=== PATIENT | male | born 1955 | race Caucasian/White ===

== ENCOUNTER 2018-02-18 09:10 | Inpatient (IN) ==
[2018-02-18] MEDS: Sod Chloride 0.9% Inj 1,000 ML IV.CONT SCH (15:00)
--- NOTE | 2018-02-18 15:02 | P.HPIM ---
History of Present Illness Primary Care Physician: No Primary Care Physician Chief Complaint: fall History of Present Illness: 62-year-old male was brought to the ER by his friend for evaluation after a fall. patient is a poor historian and most of the information was obtained from ER record. Patient is not oriented to time or place, has incoherent speech, unable to give any valuable information about his condition. 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 Patient was able to walk with his friend to and from the car, his friend does not know his medical history. Inpatient Certification: I certify that the inpatient services were ordered in accordance with Medicare regulations governing the order. This includes certification that hospital inpatient services are reasonable and necessary and in the case of services not specified as inpatient-only under 42 CFR 419.22(n), that they are appropriately provided as inpatient services in accordance to with the 2-midnight benchmark under 43 CFR 412.3(e) Estimated Total Length of Stay (Days): 2 Plans for Post Hospital Care: Not yet determined Review of Systems unobtainable due to mental condition PMFSH - History History Provided By: Friend - Medical History Medical History: Medical History (Last Reviewed 02/18/18 @ 15:01 by Claudia Adam RN) Arthritis - Surgical History Surgical History: Surgical History (Last Updated 02/18/18 @ 09:36 by Nannette Castro RN) History of hand surgery - Tobacco History Second Hand Smoke Exposure: No Smoking Status: Never smoker - Alcohol History How Often Do You Have a Drink Containing Alcohol: 4 or more times a week - Substance Use History Substance History: No History of Abuse Medications and Allergies Active Medications: Active Medications Sodium Chloride (Ns Inj) 1,000 mls @ 100 mls/hr IV.CONT .Q10H DOUGLAS Allergies Allergy/AdvReac Type Severity Reaction Status Date / Time No Known Allergies Allergy Verified 02/18/18 09:28 Home Medications Medication Instructions Recorded Confirmed Type uuglswdopv-fucgkbkcibtnt-ohus 2 cap PO Q4H PRN 02/18/18 02/18/18 History [Fioricet] hydroxychloroquine 200 mg PO DAILY 02/18/18 02/18/18 History oxycodone-aspirin 1 tab PO Q4-6H PRN 02/18/18 02/18/18 History Exam - Constitutional no acute distress - Routine HEENT Exam Head: Present: facial swelling (periorbital bruises- bilaterally.) - Routine Neck Exam Present: supple - Routine Respiratory Exam Present: CTA bilaterally - Routine Cardiovascular Exam Present: RRR - Routine Abdominal Exam Present: soft - Routine Extremities Exam Comments: no pedal edema. - Routine Neurological Exam Present: alert (but not oriented to time or place.) Caprini VTE Risk Assessment Caprini VTE Risk Assessment: Moderate/High Risk (score >= 2) VTE Pharmacological Exception Reason: High risk for bleeding Caprini Risk Assessment Model: Point Value = 1 Point Value = 2 Point Value = 3 Point Value = 5 Age 41-60 Minor surgery BMI > 25 kg/m2 Swollen legs Varicose veins or History of unexplained or recurrent spontaneous Oral contraceptives or hormone replacement Sepsis (< 1 month) Serious lung disease, including pneumonia (< 1 month) Abnormal pulmonary function Acute myocardial infarction Congestive heart failure (< 1 month) History of inflammatory bowel disease Medical patient at bed rest Age 61-74 Arthroscopic surgery Major open surgery (> 45 min) Laparoscopic surgery (> 45 min) Malignancy Confined to bed (> 72 hours) Immobilizing plaster cast Central venous access Age >= 75 History of VTE Family history of VTE Factor V Leiden Prothrombin 33909H Lupus anticoagulant Anticardiolipin antibodies Elevated serum homocysteine Heparin-induced thrombocytopenia Other congenital or acquired thrombophilia Stroke (< 1 month) Elective arthroplasty Hip, pelvis, or leg fracture Acute spinal cord injury (< 1 month) Prophylaxis Regimen: Total Risk Factor Score Risk Level Prophylaxis Regimen 0-1 Low Early ambulation 2 Moderate Order ONE of the following: *Sequential Compression Device (SCD) *Heparin 5000 units SQ BID 3-4 Higher Order ONE of the following medications: *Heparin 5000 units SQ TID *Enoxaparin/Lovenox 40 mg SQ daily (WT < 150 kg, CrCl > 30 mL/min) *Enoxaparin/Lovenox 30 mg SQ daily (WT < 150 kg, CrCl > 10-29 mL/min) *Enoxaparin/Lovenox 30 mg SQ BID (WT < 150 kg, CrCl > 30 mL/min) AND/OR *Sequential Compression Device (SCD) 5 or more Highest Order ONE of the following medications: *Heparin 5000 units SQ TID (Preferred with Epidurals) *Enoxaparin/Lovenox 40 mg SQ daily (WT < 150 kg, CrCl > 30 mL/min) *Enoxaparin/Lovenox 30 mg SQ daily (WT < 150 kg, CrCl > 10-29 mL/min) *Enoxaparin/Lovenox 30 mg SQ BID (WT < 150 kg, CrCl > 30 mL/min) AND *Sequential Compression Device (SCD) Assessment and Plan - Plan A/P - acute encephalopathy head CT with possible brain lesion and vasogenic edema. will obtain MRI brain and consult neurosurgery. received a dose of Dexamethasone and Keppra in ER. keep NPO for now- continue with IV fluid and neuro-checks. -fall with rib fracture/ possible T4 fracture fall precautions- check CT thoracic spine and continue with pain control- -right tongue swelling- likely due to trauma- will consider ENT evaluation. -pulmonary nodule and nonspecific liver lesions- will consider oncology evaluation-pending MRI brain. -DVT/GI prophylaxis with SCD's and PPI. Discussed Condition With: ER physician, the patient and RN.
[2018-02-18] MEDS ORDERED: Gadobutrol PF 7.5 MMOL/7.5 ML Vial (for RAD) IV.SIG ONE (16:29)
--- NOTE | 2018-02-18 16:44 | MR ---
EXAM DATE: 02/18/2018 4:35 PM EDT AGE/SEX: 62 years / Male INDICATIONS: Altered mental status. Garbled speech. CLINICAL DATA: This is the patient's initial encounter. Patient reports that signs and symptoms have been present for 1 day and indicates a pain score of 0/10. MEDICAL/SURGICAL HISTORY: Arthritis. Asthma. . Hand surgery. COMPARISON: [facility], CT HEAD W/O CONTRAST, 02/18/2018. . TECHNIQUE: Multiplanar, multisequence examination of the brain was performed without and with 7cc ml Gadavist (gadobutrol) contrast as a single exam dose. FINDINGS: Cerebrum: The ventricles are normal for age. There is a irregular enhancing mass lesion in the left posterior parietal lobe measuring approximately 2.6 cm. This is surrounded by vasogenic edema consist ent with neoplastic disease. No other enhancing mass occupying lesions are demonstrated. There appear s to be some subacute hemorrhage associated with this mass. No significant mass effect or midline moses ft is demonstrated.. White Matter: No significant signal abnormalities are seen in the white matter. Posterior Fossa: The cerebellum and brainstem are intact. The 4th ventricle is midline. The cerebel lopontine angle is unremarkable. The cerebellar tonsils are normal in position. Diffusion Imaging: No focal areas of restricted diffusion are seen. No evidence of acute infarction . Extracranial: The visualized portions of the orbits and paranasal sinuses are unremarkable. There is evidence of bilateral chronic mastoiditis. Post Contrast: 2.6 cm enhancing mass lesion in the left posterior parietal lobe surrounded by vasoge lorena edema characteristic for neoplastic disease. CONCLUSION: 1. Single 2.6 cm enhancing mass lesion in the left posterior parietal lobe surrounded by prominent v asogenic edema characteristic for neoplastic disease. Could either be a primary brain tumor versus a metastatic deposit. 2. Bilateral chronic mastoiditis. Electronically signed by: Kelby Carvalho MD 02/18/2018 4:43 PM EDT
[2018-02-18] MEDS: Pantoprazole Inj 40 MG Vial IV.PUSH SCH (18:09)
--- NOTE | 2018-02-18 19:09 | CT ---
EXAM DATE: 02/18/2018 12:50 PM EDT AGE/SEX: 62 years / Male INDICATIONS: T-spine abnormality seen on prior CT Thorax. CLINICAL DATA: This is the patient's initial encounter. Patient reports that signs and symptoms have been present for 1 day and indicates a pain score of 0/10. MEDICAL/SURGICAL HISTORY: None. None. RADIATION DOSE: . CTDI (mGy) ; Reconstructed from previous dataset, no dose COMPARISON: No prior exams available for comparison. TECHNIQUE: Contiguous axial images were acquired using a multirow detector CT scanner without contra st. Multiplanar reconstruction in the sagittal and coronal planes was performed. Using automated exp osure control and adjustment of the mA and/or kV according to patient size, radiation dose was kept a s low as reasonably achievable to obtain optimal diagnostic quality images. DICOM format image data is available electronically for review and comparison. FINDINGS: Vertebrae: Minimal fractures along the superior endplate at T3 and T4. Fracture may extend into the posterior elements at T3 on the left. No retropulsion of posterior fragments. Minimal loss of height of T3 and T4. Fracture along the superior aspect of T4 extends into the posterior elements without si gnificant displacement. No retropulsion of posterior fragments or canal stenosis. Alignment: Normal. No subluxation. T1 - T2: Normal. T2 - T3: The thecal sac has a normal diameter. No evidence of disc bulge or protrusion. T3 - T4: The thecal sac has a normal diameter. No evidence of disc bulge or protrusion. T4 - T5: The thecal sac has a normal diameter. No evidence of disc bulge or protrusion. T5 - T6: The thecal sac has a normal diameter. No evidence of disc bulge or protrusion. T6 - T7: The thecal sac has a normal diameter. No evidence of disc bulge or protrusion. T7 - T8: The thecal sac has a normal diameter. No evidence of disc bulge or protrusion. T8 - T9: The thecal sac has a normal diameter. No evidence of disc bulge or protrusion. T9 - T10: The thecal sac has a normal diameter. No evidence of disc bulge or protrusion. T10 - T11: The thecal sac has a normal diameter. No evidence of disc bulge or protrusion. T11 - T12: The thecal sac has a normal diameter. No evidence of disc bulge or protrusion. T12 - L1: The thecal sac has a normal diameter. No evidence of disc bulge or protrusion. CONCLUSION: 1. Fractures along the superior endplate at T3 and T4 with slight extension into the posterior eleme nts on the left at T3 and bilaterally at T4. No retropulsion of posterior fragments or canal stenosis . Electronically signed by: Luca Osborn MD 02/18/2018 12:55 PM EDT
[2018-02-19] MEDS: Sod Chloride 0.9% Inj 1,000 ML IV.CONT SCH ×2 (03:18→10:26)
--- NOTE | 2018-02-19 10:39 | P.PNIM ---
Subjective Interval history: f/u; brain tumor looks comfortable. denies pain. d/w the RN and no acute issues over night. Physical Exam Vital signs: Vital Signs 02/18/18 15:00 02/18/18 16:00 02/18/18 20:00 Temperature 99.6 F 99.6 F 99.4 F Pulse Rate 102 H 102 H 92 H Respiratory Rate 24 25 H 23 Blood Pressure 175/84 H 175/84 H 151/81 H Pulse Oximetry 96 95 97 02/19/18 00:00 02/19/18 04:00 Temperature 99.5 F 99.4 F Pulse Rate 24 L 78 Respiratory Rate 24 21 Blood Pressure 167/83 H 128/59 L Pulse Oximetry 94 L 95 Intake & Output 02/18/18 02/19/18 02/19/18 18:59 06:59 18:59 Intake Total 1105 / 1105 Output Total 225 / 225 250 / 250 Balance -225 / -225 855 / 855 Weight 76 kg 77 kg Intake: IV 1105 / 1105 NS Inj 1,000 ML @ 100 mls/hr IV 1000 / 1000 .CONT .Q10H DOUGLAS Rx#:[id number] Keppra Inj 500 MG In NS Inj 100 105 / 105 ML @ 420 mls/hr IV.SIG Q12H DOUGLAS Rx#:[id number] Output: Urine 225 / 225 250 / 250 Other: # Voids 1 Weight On Admission 76 kg - Constitutional no acute distress - Routine HEENT Exam Head: Present: facial swelling (swelling of the tongue seems to be improving.) - Routine Respiratory Exam Present: CTA bilaterally - Routine Cardiovascular Exam Present: RRR - Routine Abdominal Exam Present: soft - Routine Extremities Exam Comments: no pedal edema. - Routine Neurological Exam Present: alert Results - Imaging Impressions Head MRI 02/18/18 00:00 CONCLUSION: 1. Single 2.6 cm enhancing mass lesion in the left posterior parietal lobe surrounded by prominent vasogenic edema characteristic for neoplastic disease. Could either be a primary brain tumor versus a metastatic deposit. 2. Bilateral chronic mastoiditis. Thoracic Spine CT 02/18/18 00:00 CONCLUSION: 1. Fractures along the superior endplate at T3 and T4 with slight extension into the posterior elements on the left at T3 and bilaterally at T4. No retropulsion of posterior fragments or canal stenosis. Assessment and Plan - Plan A/P - acute encephalopathy/ brain tumor continue Dexamethasone and Keppra- neurosurgery and oncology consulted. continue neuro-checks. -fall with rib fracture/ T3/ T4 fracture fall precautions- continue with pain control- neurosurgery evaluation as noted above. -right tongue swelling- likely due to trauma- improving. -pulmonary nodule and nonspecific liver lesions- oncology evaluation-as noted above. -DVT/GI prophylaxis with SCD's and PPI.
[2018-02-19] MEDS ORDERED: Gadobutrol PF 10 MMOL/10 ML Vial (for RAD) IV.SIG ONE (13:39)
--- NOTE | 2018-02-19 14:02 | MR ---
EXAM DATE: 02/19/2018 1:55 PM EDT AGE/SEX: 62 years / Male INDICATIONS: Abnormal CT scan. CLINICAL DATA: This is the patient's initial encounter. Patient reports that signs and symptoms have been present for 1 day and indicates a pain score of 0/10. MEDICAL/SURGICAL HISTORY: Asthma. Arthritis. . Hand surgery. COMPARISON: [facility], CT ABDOMEN & PELVIS W/O CONTRAST, 02/18/2018. . TECHNIQUE: Multiplanar, multisequence images of the abdomen were obtained prior to and following adm inistration of 8 ml Gadavist (gadobutrol) contrast as a single exam dose with dynamic multiphase tech nique. FINDINGS: Liver: The liver is homogeneous and normal in signal intensity. Parenchymal enhancement is normal. Th ere is no biliary ductal dilatation. A few small benign-appearing hepatic cysts are seen throughout t he liver. There is a 8 mm cyst in left lobe of liver. There is a 9 mm cyst in the peripheral right lo be of the liver. There is a 1.2 cyst in the posterior right lobe of the liver. Gallbladder: No gallstones seen. Spleen: The spleen is unremarkable. Pancreas: The pancreas is unremarkable. Adrenals: The adrenal glands appear normal. Kidneys: Both kidneys appear normal with symmetric nephrograms and no focal parenchymal abnormalities . There is no hydronephrosis on either side. Retroperitoneum: The aorta is unremarkable. There is no pathologic abdominal lymphadenopathy. CONCLUSION: 1. There are a few scattered benign-appearing hepatic cysts throughout the liver. Otherwise, the gloria er is unremarkable. 2. No evidence of gallstones or biliary tract obstruction. Electronically signed by: Kelby Carvalho MD 02/19/2018 2:01 PM EDT
--- NOTE | 2018-02-19 14:26 | P.CONNS ---
History of Present Illness Primary Care Provider: No Primary Care Physician Chief Complaint: Left temporal lesion History of Present Illness: Mr. Gtz is a 62 y/o male last seen normal by his neighbor on 02/15/18. When his neighbor went to check on him on 02/16 he noted severe bruising across his face. He had difficulty communicating. EMS was called and he was transported to the hospital. Trauma evaluation demonstrated a head CT with cerebral edema and a ~2.5 cm mass in the left temporal lobe, CT thoracic spine demonstrated T3/ T4 compression fractures, CT chest demonstrated a 1.6 cm left lower lobe nodule. He underwent a MRI of the brain which demonstrates a heterogenously enhancing 2.6 x 2.1 x 1.4 cm left temporal mass with associated vasogenic edema , minimal mass effect. Review of Systems All other systems reviewed negative except as stated in HPI [facility] - History History Provided By: Friend - Medical History Medical History: Medical History (Last Reviewed 02/19/18 @ 12:31 by Ramesh Luna) Arthritis - Surgical History Surgical History: Surgical History (Last Reviewed 02/19/18 @ 12:31 by Ramesh Luna) History of hand surgery - Tobacco History Second Hand Smoke Exposure: No Smoking Status: Never smoker - Alcohol History How Often Do You Have a Drink Containing Alcohol: 4 or more times a week - Substance Use History Substance History: No History of Abuse Medications and Allergies Active Medications: Active Medications Acetaminophen (Tylenol) 650 mg PO Q4H PRN PRN Reason: fever/pain Dexamethasone Sodium Phosphate (Decadron Inj) 4 mg IV.PUSH Q6HR DOUGLAS Last Admin: 02/19/18 12:44 Dose: 4 mg Enalaprilat (Vasotec Inj) 1.25 mg IV.PUSH Q8H PRN PRN Reason: SBP > 180 or DBP > 110 Last Admin: 02/19/18 00:32 Dose: 1.25 mg Sodium Chloride (Ns Inj) 1,000 mls @ 100 mls/hr IV.CONT .Q10H DOUGLAS Last Admin: 02/19/18 10:26 Dose: Not Given Levetiracetam 500 mg/ Sodium (Chloride) 105 mls @ 420 mls/hr IV.SIG Q12H DOUGLAS Last Admin: 02/19/18 09:30 Dose: 420 mls/hr Pantoprazole Sodium (Protonix Inj) 40 mg IV.PUSH Q24H DOUGLAS Last Admin: 02/18/18 18:09 Dose: 40 mg Allergies Allergy/AdvReac Type Severity Reaction Status Date / Time No Known Allergies Allergy Verified 02/18/18 09:28 Home Medications Medication Instructions Recorded Confirmed Type cgyiwtcjvl-srsvtfkcehuta-fogt 2 cap PO Q4H PRN 02/18/18 02/18/18 History [Fioricet] hydroxychloroquine 200 mg PO DAILY 02/18/18 02/18/18 History oxycodone-aspirin 1 tab PO Q4-6H PRN 02/18/18 02/18/18 History Exam Vital signs: Vital Signs 02/18/18 15:00 02/18/18 16:00 02/18/18 20:00 Temperature 99.6 F 99.6 F 99.4 F Pulse Rate 102 H 102 H 92 H Respiratory Rate 24 25 H 23 Blood Pressure 175/84 H 175/84 H 151/81 H Pulse Oximetry 96 95 97 02/19/18 00:00 02/19/18 04:00 02/19/18 08:00 Temperature 99.5 F 99.4 F 98.7 F Pulse Rate 24 L 78 80 Respiratory Rate 24 21 27 H Blood Pressure 167/83 H 128/59 L 181/77 H Pulse Oximetry 94 L 95 97 02/19/18 12:00 Temperature 98.8 F Pulse Rate 84 Respiratory Rate 31 H Blood Pressure 162/91 H Pulse Oximetry 98 Intake & Output 02/18/18 02/19/18 02/19/18 18:59 06:59 18:59 Intake Total 1105 / 1105 Output Total 225 / 225 250 / 250 Balance -225 / -225 855 / 855 Weight 76 kg 77 kg Intake: IV 1105 / 1105 NS Inj 1,000 ML @ 100 mls/hr IV 1000 / 1000 .CONT .Q10H DOUGLAS Rx#:[id number] Keppra Inj 500 MG In NS Inj 100 105 / 105 ML @ 420 mls/hr IV.SIG Q12H DOUGLAS Rx#:[id number] Output: Urine 225 / 225 250 / 250 Other: # Voids 1 Date of Last Bowel Movement 02/19/18 Weight On Admission 76 kg - Constitutional no acute distress - Routine HEENT Exam Head: Present: normocephalic Eye: Present: EOMI, PERRL ENT: Present: mucous membranes moist - Routine Neck Exam Present: supple - Routine Chest/Breast/Axilla Exam Chest wall: Absent: tenderness - Routine Respiratory Exam Absent: respiratory distress - Routine Cardiovascular Exam Present: RRR - Routine Abdominal Exam Present: soft - Routine Extremities Exam Absent: cyanosis - Routine Skin Exam Present: intact - Routine Neurological Exam Present: alert Opens eyes spontaneously PERRL EOMI Regards examiner Profound receptive aphasia Names 1/5 objects Mimics x4 with symmetric, anti-gravity strength Results - Diagnostic Findings Additional findings: CT with cerebral edema and a ~2.5 cm mass in the left temporal lobe, CT thoracic spine demonstrated T3/T4 compression fractures, CT chest demonstrated a 1.6 cm left lower lobe nodule. MRI of the brain demonstrates a heterogenously enhancing 2.6 x 2.1 x 1.4 cm left temporal mass with associated vasogenic edema, minimal mass effect. Assessment and Plan - Assessment (1) Brain tumor Code(s): D49.6 - Neoplasm of unspecified behavior of brain Status: Acute - Plan Mr. 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 He almost certainly suffered a fall resulting in his facial ecchymoses and thoracic compression fractures. The fall may have been from a seizure event that he is unable to recall and/or communicate to us. Plan: Mr. Gtz's brain metastasis is in an eloquent region responsible for speech comprehension. Surgical resection would pose him an extremely high risk of permanent receptive aphasia, whereas treatment with steroids and radiation would like result in some denominational of speech function as his cerebral edema and local mass effect gautam. Oncology consultation - consideration of bronchoscopic versus IR guided biopsy of lung nodule for tissue diagnosis. Radiation oncology consultation for radiosurgery evaluation. Dexamethasone 4 mg q6h Keppra 500 mg BID No intervention for T3/T4 compression fractures. Ok for OOB ad bassem. PT/OT PAIRER evaluation (both for swallow and speech therapy) I discussed his treatment plan at length both with him (limited comprehension) and with his brother at bedside.
[2018-02-19] MEDS: Pantoprazole Inj 40 MG Vial IV.PUSH SCH (16:13)
[2018-02-19] MEDS: Acetaminophen 325 MG Tablet PO PRN (22:43)
[2018-02-20] MEDS: Sod Chloride 0.9% Inj 1,000 ML IV.CONT SCH ×2 (05:41→17:46)
[2018-02-20 05:47] LABS: Baso % (Auto) 0.1 % (0.0-2.0); Hematocrit 35.1 % (39.0-51.0); Lymph # (Auto) 0.6 th/mm3 (1.0-4.8); Lymph % (Auto) 7.1 % (9.0-44.0); Mean Corpuscular HGB Conc 34.1 % (32.0-36.0); Mean Corpuscular Hemoglobin 33.8 pg (27.0-34.0); Mean Platelet Volume 6.4 fL (7.0-11.0); Mono # (Auto) 0.8 th/mm3 (0.0-0.9); Mono % (Auto) 9.3 % (0.0-8.0); Neut # (Auto) 7.4 th/mm3 (1.8-7.7); Neut % (Auto) 83.5 % (16.0-70.0); Platelet Count 352 th/mm3 (150-450); Red Blood Count 3.55 mil/mm3 (4.50-5.90); Red Cell Distribution Width 13.2 % (11.6-17.2); White Blood Count 8.9 th/mm3 (4.0-11.0)
[2018-02-20 06:11] LABS: Anion Gap 11 meq/L (5-15); Blood Urea Nitrogen 15 mg/dL (7-18); Calcium 8.9 mg/dL (8.5-10.1); Carbon Dioxide 24.6 meq/L (21.0-32.0); Chloride 105 meq/L (98-107); Glomerular Filtration Rate Greater Than 89 mL/min (>89); Glucose,Random 110 mg/dL (74-106); Potassium 3.4 meq/L (3.5-5.1); Sodium 141 meq/L (136-145)
--- NOTE | 2018-02-20 09:54 | P.PNIM ---
Subjective Interval history: f/u; brain mass in no acute distress. speech seems better today. denies pain. BP trend noted. d/w the RN. Physical Exam Vital signs: Vital Signs 02/19/18 12:00 02/19/18 16:00 02/19/18 20:00 Temperature 98.8 F 98.8 F 98.8 F Pulse Rate 84 83 86 Respiratory Rate 31 H 23 24 Blood Pressure 162/91 H 159/83 H 152/83 H Pulse Oximetry 98 96 02/19/18 23:43 02/20/18 00:00 02/20/18 04:00 Temperature 98.7 F 99.0 F Pulse Rate 72 72 Respiratory Rate 20 21 22 Blood Pressure 181/93 H 180/86 H Pulse Oximetry 96 96 02/20/18 08:00 Temperature 98.9 F Pulse Rate 72 Respiratory Rate 20 Blood Pressure 170/84 H Pulse Oximetry 97 Intake & Output 02/19/18 02/20/18 02/20/18 18:59 06:59 18:59 Intake Total 2105 / 2105 345 / 345 Balance 2105 / 2105 345 / 345 Weight 78.3 kg Intake: IV 1105 / 1105 105 / 105 NS Inj 1,000 ML @ 100 mls/hr IV 1000 / 1000 .CONT .Q10H DOUGLAS Rx#:[id number] Keppra Inj 500 MG In NS Inj 100 105 / 105 105 / 105 ML @ 420 mls/hr IV.SIG Q12H DOUGLAS Rx#:[id number] Oral 1000 / 1000 240 / 240 Other: # Voids 4 3 Date of Last Bowel Movement 02/19/18 02/19/18 # Bowel Movements 3 1 - Constitutional no acute distress - Routine Respiratory Exam Present: CTA bilaterally - Routine Cardiovascular Exam Present: RRR - Routine Abdominal Exam Present: soft - Routine Extremities Exam Comments: no pedal edema. - Routine Neurological Exam Present: alert Results - Labs CBC & Chem 7: 02/20/18 04:53 02/20/18 04:53 Laboratory Results - last 24 hr 02/19/18 02/20/18 02/20/18 21:16 04:53 04:53 WBC 8.9 RBC 3.55 L Hgb 12.0 L Hct 35.1 L MCV 99.0 MCH 33.8 MCHC 34.1 RDW 13.2 Plt Count 352 MPV 6.4 L Neut % (Auto) 83.5 H Lymph % (Auto) 7.1 L [place] % (Auto) 9.3 H Eos % (Auto) 0.0 Baso % (Auto) 0.1 Neut # (Auto) 7.4 Lymph # (Auto) 0.6 L [place] # (Auto) 0.8 Eos # (Auto) 0.0 Baso # (Auto) 0.0 WBC Differential . Differential Comment Auto diff final Sodium 141 Potassium 3.4 L Chloride 105 Carbon Dioxide 24.6 Anion Gap 11 BUN 15 Creatinine 0.62 Estimated GFR Greater than 89 Random Glucose 110 H Calcium 8.9 D Carcinoembryonic Ag 1.8 - Imaging Impressions Abdomen MRI 02/19/18 00:00 CONCLUSION: 1. There are a few scattered benign-appearing hepatic cysts throughout the liver. Otherwise, the liver is unremarkable. 2. No evidence of gallstones or biliary tract obstruction. Assessment and Plan - Plan A/P - brain tumor continue Dexamethasone and Keppra- neurosurgery and oncology consulted. awaiting radiation oncology evaluation. continue neuro-checks. -fall with rib fracture/ T3/ T4 fracture fall precautions- continue with pain control- conservative treatment per neurosurgery. -right tongue swelling- likely due to trauma- improving. -pulmonary nodule and nonspecific liver lesions- oncology evaluation-as noted above. -elevated BP; hypertension?- start on norvasc and continue to monitor and adjust the regimen as needed. -DVT/GI prophylaxis with SCD's and PPI.
[2018-02-20] MEDS: amLODIPine 5 MG Tablet PO SCH (10:51)
--- NOTE | 2018-02-20 12:40 | MB ---
cc: Parth Gomez MD DATE: 02/19/2018 REASON FOR CONSULTATION: Patient with either primary or metastatic brain tumor, lung mass, and possible metastatic disease to the liver. PATIENT PROFILE: The history is provided by the patient's younger brother who is present. The patient has both a receptive and expressive aphasia and has significant problems communicating. Mr. Gtz is a 62-year-old male. He is from his . They have no further relationship. He has a daughter and is estranged from her. The patient lives alone. He had worked for [employer], but is now on disability due to severe arthritis involving both hands for which he has had several operations and he takes Plaquenil. He does not smoke and has never smoked. He appears to be alcoholic consuming at least 4-6 beers daily and at times more than this. The patient's brother is unclear about how much alcohol he consumes, but it is certainly considerable. HISTORY OF PRESENT ILLNESS: The patient is a 62-year-old male who during the past 1-2 months has had occasional transient alterations in speech. For the most part, he was well 3-4 days ago. At that time, he was able to communicate effectively and manage his affairs. He was brought to the emergency room by a friend who found him at home confused, unable to communicate and with periorbital ecchymosis from a fall. No seizure activity was witnessed. He has undergone multiple radiographic studies. On 02/18/2018, he had an MRI of the head with and without contrast. He is found to have an irregular enhancing mass lesion in the left posterior parietal lobe measuring 2.6 cm with surrounding vasogenic edema. There are no other lesions. From the MRI, it is not possible to tell whether this is a primary brain tumor versus a metastatic lesion. CT scan of the chest on 02/18/2018 shows a 1.6 cm nodule left lower lobe. There is a left posterior 10th rib fracture. There is a compression deformity involving the upper thoracic spine at about T4 felt to possibly be acute. A CT scan of the thoracic spine shows fractures along the superior endplate at T3 and T4 with slight extension into the posterior elements on the left at T3 and bilaterally at T4. There is no mention of anything to suggest malignancy. A CT scan of the abdomen and pelvis on 02/18/2018 shows a 1.6 cm left lower lobe pulmonary nodule and nonspecific low density liver lesions. A contrast MRI was recommended. A CT scan of the facial bones showed periorbital soft tissue swelling and slight prominence along the base of the tongue on the right. CT of the soft tissues of the neck with IV contrast showed bilateral soft tissue swelling and prominence along the right tongue and right anterior submandibular area, possibly related to the recent trauma. PAST SURGICAL HISTORY: Operations in both hands due to arthritis approximately 6 years ago. PAST MEDICAL HISTORY: 1. Arthritis involving the hands. 2. Probable alcoholism. MEDICATIONS PRIOR TO ADMISSION: Plaquenil was found at the house; 200 mg daily. ALLERGIES: NONE. FAMILY HISTORY: Father at age 77 of emphysema and smoke. Mother of a stroke at age 84. The patient has 4 sisters who are living and 3 brothers who are living; a brother who of cancer of the esophagus and a brother who of an automobile accident. REVIEW OF SYSTEMS: Very difficult to obtain. There has been recent problems with speech. There is vague visual disturbance that he has had. He can communicate much beyond this, but the patient's brother tells me that he was functioning at a very high level only 3 or 4 days ago. LABORATORY TESTS: On 02/18/2018, hemoglobin 13, white count 11,000, platelets 267,000. Differential normal, PT and PTT are normal. Electrolytes, BUN and creatinine and liver function tests are normal. PHYSICAL EXAMINATION: GENERAL: Reveals a pleasant gentleman. He has marked periorbital ecchymosis with raccoon eyes. The respiratory rate is 20, pulse is 80., afebrile, O2 saturation 98%, blood pressure 160/90. HEENT: Head is normocephalic. Sclerae and conjunctivae unremarkable. Oropharynx I cannot find any mucosal lesions. NECK: There is no cervical, supraclavicular, axillary or inguinal adenopathy. HEART: Regular rate and rhythm. LUNGS: Clear, without rales, wheezes, or rhonchi. ABDOMEN: Without hepatosplenomegaly, masses or tenderness. EXTREMITIES: No edema. MUSCULOSKELETAL: No bone pain. NEUROLOGIC: There is no focal weakness. He is able to walk well. He has a profound expressive aphasia, receptive aphasia and I believe apraxia. ASSESSMENT: The patient is a 62-year-old male. He does not smoke. He has a tumor in the left posterior parietal lobe, which involves the centers for speech and understanding or at least it appears based on his current presentation. I suspect that some of his acute deterioration may be post ictal as he was functioning at a high level 3 or 4 days ago. He has been seen by neurosurgery and apparently there was discussion about the fact that he may not be a surgical candidate because of the location of the tumor. He has a lesion in the lung, which is suspect for a primary lung cancer or less likely a metastatic lesion, although it could conceivably be benign. There is a question as to whether he has metastatic disease to the liver. PLAN: It is imperative that histology be obtained and the extent of the disease be delineated. I have ordered an MRI of the liver with and without contrast. I have ordered a CEA. I will request that Radiation Oncology see him as clearly the treatment of the tumor in the brain can potentially involve both neurosurgery and Radiation Oncology. In the meantime, he will continue Decadron and he is taking Keppra as well. Hopefully, he will be better in several days from the Decadron and the Keppra, which should prevent further seizures. The situation was discussed with the patient's brother. I showed him the MRI of the brain and the CT scan of the chest. The patient has difficulty making decisions because of the expressive and receptive aphasia. Palliative care will be consulted to help the patient's brother obtain or at least explore such things as healthcare surrogate, power of ip technology transactions attorney, etc. I have discussed this with the patient's hospitalist, Dr. Carmona. MD JOSSIE Chopra/kyle/ben , 12:57 PM , 01:13 PM WALT
--- NOTE | 2018-02-20 16:08 | P.PNNS ---
Subjective Interval history: Wernicke's aphasia slightly improving (could name president but still significant) Physical Exam Vital signs: Vital Signs 02/19/18 20:00 02/19/18 23:43 02/20/18 00:00 Temperature 98.8 F 98.7 F Pulse Rate 86 72 Respiratory Rate 24 20 21 Blood Pressure 152/83 H 181/93 H Pulse Oximetry 96 02/20/18 04:00 02/20/18 08:00 02/20/18 12:00 Temperature 99.0 F 98.9 F 98.1 F Pulse Rate 72 72 90 Respiratory Rate 22 20 20 Blood Pressure 180/86 H 170/84 H 147/87 H Pulse Oximetry 96 97 95 Intake & Output 02/19/18 02/20/18 02/20/18 18:59 06:59 18:59 Intake Total 2105 / 2105 345 / 345 105 / 105 Balance 2105 / 2105 345 / 345 105 / 105 Weight 78.3 kg Intake: IV 1105 / 1105 105 / 105 105 / 105 NS Inj 1,000 ML @ 100 mls/hr IV 1000 / 1000 .CONT .Q10H [facility] Rx#:[id number] Keppra Inj 500 MG In NS Inj 100 105 / 105 105 / 105 105 / 105 ML @ 420 mls/hr IV.SIG Q12H [facility] Rx#:[id number] Oral 1000 / 1000 240 / 240 Other: # Voids 4 3 Date of Last Bowel Movement 02/19/18 02/19/18 # Bowel Movements 3 1 Narrative: Opens eyes spontaneously and communicates PERRL EOMI Regards examiner Profound receptive aphasia but is able to name the President (Maria Eugenia) Names 1/5 objects Mimics x4 with symmetric, anti-gravity strength Assessment and Plan - Assessment (1) Brain tumor Code(s): D49.6 - Neoplasm of unspecified behavior of brain Status: Acute - Plan Mr. 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 He almost certainly suffered a fall resulting in his facial ecchymoses and thoracic compression fractures. The fall may have been from a seizure event that he is unable to recall and/or communicate to us. Plan: Mr. Gtz's brain metastasis is in an eloquent region responsible for speech comprehension. Surgical resection would pose him an extremely high risk of permanent receptive aphasia, whereas treatment with steroids and radiation would like result in some voodoo of speech function as his cerebral edema and local mass effect gautam. Oncology consultation - consideration of bronchoscopic versus IR guided biopsy of lung nodule for tissue diagnosis. Radiation oncology consultation for radiosurgery evaluation. Dexamethasone 4 mg q6h -- consider starting to taper tomorrow to 2mg q6h Keppra 500 mg BID No intervention for T3/T4 compression fractures. Ok for OOB ad bassem. PT/OT ASSET PROTECTION MANAGER evaluation (both for swallow and speech therapy) I discussed his treatment plan at length both with him (limited comprehension) and with his son and friend/brother at bedside.
[2018-02-20] MEDS: Pantoprazole Inj 40 MG Vial IV.PUSH SCH (16:30)
--- NOTE | 2018-02-20 18:09 | P.PNONC ---
Subjective Interval history: Small amount of improvement in terms of finding words. Speech is not fluent. I am unable to successfully converse with him. Objective Vital Signs/Intake & Output: Vital Signs 02/19/18 20:00 02/19/18 23:43 02/20/18 00:00 Temperature 98.8 F 98.7 F Pulse Rate 86 72 Respiratory Rate 24 20 21 Blood Pressure 152/83 H 181/93 H Pulse Oximetry 96 02/20/18 04:00 02/20/18 08:00 02/20/18 12:00 Temperature 99.0 F 98.9 F 98.1 F Pulse Rate 72 72 90 Respiratory Rate 22 20 20 Blood Pressure 180/86 H 170/84 H 147/87 H Pulse Oximetry 96 97 95 02/20/18 16:00 Temperature 98.4 F Pulse Rate 88 Respiratory Rate 23 Blood Pressure 156/83 H Pulse Oximetry 97 Intake & Output 02/19/18 02/20/18 02/20/18 18:59 06:59 18:59 Intake Total 2105 / 2105 345 / 345 105 / 105 Balance 2105 / 2105 345 / 345 105 / 105 Weight 78.3 kg Intake: IV 1105 / 1105 105 / 105 105 / 105 NS Inj 1,000 ML @ 100 mls/hr IV 1000 / 1000 .CONT .Q10H [facility] Rx#:[id number] Keppra Inj 500 MG In NS Inj 100 105 / 105 105 / 105 105 / 105 ML @ 420 mls/hr IV.SIG Q12H [facility] Rx#:[id number] Oral 1000 / 1000 240 / 240 Other: # Voids 4 3 Date of Last Bowel Movement 02/19/18 02/19/18 # Bowel Movements 3 1 Result Diagrams: 02/20/18 04:53 02/20/18 04:53 Laboratory Results: Laboratory Results - last 24 hr 02/19/18 02/20/18 02/20/18 21:16 04:53 04:53 WBC 8.9 RBC 3.55 L Hgb 12.0 L Hct 35.1 L MCV 99.0 MCH 33.8 MCHC 34.1 RDW 13.2 Plt Count 352 MPV 6.4 L Neut % (Auto) 83.5 H Lymph % (Auto) 7.1 L Coffee % (Auto) 9.3 H Eos % (Auto) 0.0 Baso % (Auto) 0.1 Neut # (Auto) 7.4 Lymph # (Auto) 0.6 L Coffee # (Auto) 0.8 Eos # (Auto) 0.0 Baso # (Auto) 0.0 WBC Differential . Differential Comment Auto diff final Sodium 141 Potassium 3.4 L Chloride 105 Carbon Dioxide 24.6 Anion Gap 11 BUN 15 Creatinine 0.62 Estimated GFR Greater than 89 Random Glucose 110 H Calcium 8.9 D Carcinoembryonic Ag 1.8 Medications: Active Medications Generic Name Dose Route Start Last Admin Trade Name Freq PRN Reason Stop Dose Admin Acetaminophen 650 mg 02/18/18 15:04 02/19/18 22:43 Tylenol PO 650 mg Q4H PRN Administration fever/pain Amlodipine Besylate 5 mg 02/20/18 10:00 02/20/18 10:51 Norvasc PO 5 mg DAILY DOUGLAS Administration Dexamethasone Sodium Phosphate 4 mg 02/19/18 00:00 02/20/18 17:59 Decadron Inj IV.PUSH 4 mg Q6HR DOUGLAS Administration Enalaprilat 1.25 mg 02/18/18 17:22 02/20/18 17:59 Vasotec Inj IV.PUSH 1.25 mg Q8H PRN Administration SBP > 180 or DBP > 110 Sodium Chloride 1,000 mls @ 100 mls/hr 02/18/18 13:00 02/20/18 17:46 Ns Inj IV.CONT Not Given .Q10H D[facility]GLAS Levetiracetam 500 mg/ Sodium 105 mls @ 420 mls/hr 02/18/18 21:00 02/20/18 13: 38 Chloride IV.SIG Infused Q12H DOUGLAS Infusion Pantoprazole Sodium 40 mg 02/18/18 16:00 02/20/18 16:30 Protonix Inj IV.PUSH 40 mg Q24H DOUGLAS Administration Objective Remarks: GENERAL: Well-nourished, well-developed patient. SKIN: Warm and dry. HEAD: Normocephalic. EYES: Periorbital ecchymoses NECK: Supple, trachea midline. No JVD or lymphadenopathy. LYMPHATIC: No adenopathy. CARDIOVASCULAR: Regular rate and rhythm without murmurs. RESPIRATORY: Breath sounds equal bilaterally. No accessory muscle use. GASTROINTESTINAL: Abdomen soft, non-tender, nondistended. EXTREMITIES: No cyanosis, or edema. MUSCULOSKELETAL: Adequate muscle tone. NEUROLOGICAL: No overt focal weakness. Still has both expressive and receptive aphasia. . Assessment/Plan - Plan There has been very little neurologic improvement. The MRI of the liver shows no evidence of metastatic disease or primary tumor within the abdomen. The CEA is normal. Other than doing a biopsy of the brain at the present time the only place that we can get pathology would be a needle biopsy of the lung. I contacted the patient's brother Andres Gtz. I received a message from him which he texted me stating "I am giving you permission to do the biopsy for his lung I signed the paperwork today giving me the medical surrogate and it is in his file". I have spoken with Dr. Blue from radiation oncology. He feels that it is most appropriate as well to proceed with a needle biopsy of the lung. Decisions regarding treatment of the tumor in the brain will be made later when more information is available. Ideally if possible he would be best served by resection and postop radiation but it is not clear that this would be an option.
--- NOTE | 2018-02-20 18:37 | P.CON ---
History of Present Illness Service: Radiation oncology Consult date: 02/20/18 Requesting Physician: Parth Gomez Reason for Consult: Brain mass and lung mass Primary Care Provider: No Primary Care Physician Chief Complaint: Left temporal lesion History of Present Illness: 62-year-old white male which according to the records, since the patient is unable to communicate effectively has had alterations in speech for 1-2 months. It appears that he was fine until about 3-4 days ago and was found at home confused and unable to communicate in with possible periorbital ecchymosis. As a result of this the patient was admitted and imaging studies were performed which detected a lung mass as well as a left temporal mass within the brain. Patient has been evaluated by neurosurgery and due to the location of the mass no surgical intervention has been recommended. I have discussed this case today with Dr. Gomez. He has requested a consult for evaluation regarding possible radiosurgery treatment options to the brain as well as to the lung. Patient had a recent MRI of the liver which has detected no metastatic disease. Review of Systems other (Patient has expressive aphasia so the review systems is difficult to obtain) As far as I can tell apart from the expressive aphasia. Patient is also not able to communicate via hand written notes. Patient is able to follow simple commands. But has some receptive deficits as well. [facility] - History History Provided By: Family Member - Medical History Medical History: Medical History (Last Reviewed 02/19/18 @ 12:31 by Ramesh Luna) Arthritis - Surgical History Surgical History: Surgical History (Last Reviewed 02/19/18 @ 12:31 by Ramesh Luna) History of hand surgery - Tobacco History Second Hand Smoke Exposure: Yes Tobacco Use In Past 30 Days: No Smoking Status: Former smoker - Alcohol History How Often Do You Have a Drink Containing Alcohol: 4 or more times a week - Substance Use History Substance History: No History of Abuse Medications and Allergies Active Medications: Active Medications Acetaminophen (Tylenol) 650 mg PO Q4H PRN PRN Reason: fever/pain Last Admin: 02/19/18 22:43 Dose: 650 mg Amlodipine Besylate (Norvasc) 5 mg PO DAILY [facility] Last Admin: 02/20/18 10:51 Dose: 5 mg Dexamethasone Sodium Phosphate (Decadron Inj) 4 mg IV.PUSH Q6HR [facility] Last Admin: 02/20/18 17:59 Dose: 4 mg Enalaprilat (Vasotec Inj) 1.25 mg IV.PUSH Q8H PRN PRN Reason: SBP > 180 or DBP > 110 Last Admin: 02/20/18 17:59 Dose: 1.25 mg Sodium Chloride (Ns Inj) 1,000 mls @ 100 mls/hr IV.CONT .Q10H [facility] Last Admin: 02/20/18 17:46 Dose: Not Given Levetiracetam 500 mg/ Sodium (Chloride) 105 mls @ 420 mls/hr IV.SIG Q12H [facility] Last Infusion: 02/20/18 13:38 Dose: Infused Pantoprazole Sodium (Protonix Inj) 40 mg IV.PUSH Q24H [facility] Last Admin: 02/20/18 16:30 Dose: 40 mg Allergies Allergy/AdvReac Type Severity Reaction Status Date / Time No Known Allergies Allergy Verified 02/18/18 09:28 Home Medications Medication Instructions Recorded Confirmed Type fwxximjgvx-mexnxszwyaopi-yewg 2 cap PO Q4H PRN 02/18/18 02/18/18 History [Fioricet] hydroxychloroquine 200 mg PO DAILY 02/18/18 02/18/18 History oxycodone-aspirin 1 tab PO Q4-6H PRN 02/18/18 02/18/18 History Physical Exam Vital signs: Vital Signs 02/19/18 20:00 02/19/18 23:43 02/20/18 00:00 Temperature 98.8 F 98.7 F Pulse Rate 86 72 Respiratory Rate 24 20 21 Blood Pressure 152/83 H 181/93 H Pulse Oximetry 96 02/20/18 04:00 02/20/18 08:00 02/20/18 12:00 Temperature 99.0 F 98.9 F 98.1 F Pulse Rate 72 72 90 Respiratory Rate 22 20 20 Blood Pressure 180/86 H 170/84 H 147/87 H Pulse Oximetry 96 97 95 02/20/18 16:00 Temperature 98.4 F Pulse Rate 88 Respiratory Rate 23 Blood Pressure 156/83 H Pulse Oximetry 97 Intake & Output 02/19/18 02/20/18 02/20/18 18:59 06:59 18:59 Intake Total 2105 / 2105 345 / 345 905 / 905 Balance 2105 / 2105 345 / 345 905 / 905 Weight 78.3 kg Intake: IV 1105 / 1105 105 / 105 105 / 105 NS Inj 1,000 ML @ 100 mls/hr IV 1000 / 1000 .CONT .Q10H [facility] Rx#:[id number] Keppra Inj 500 MG In NS Inj 100 105 / 105 105 / 105 105 / 105 ML @ 420 mls/hr IV.SIG Q12H [facility] Rx#:[id number] Oral 1000 / 1000 240 / 240 800 / 800 Other: # Voids 4 3 4 Date of Last Bowel Movement 02/19/18 02/19/18 # Bowel Movements 3 1 - Constitutional no acute distress, obese, cooperative - Routine HEENT Exam Head: Present: normocephalic, atraumatic Eye: Present: EOMI ENT: Present: mucous membranes moist - Routine Neck Exam Present: supple, trachea midline - Routine Respiratory Exam Comments: To auscultation bilateral lungs were clear to auscultation with appropriate ventilatory and inspiratory effort - Routine Cardiovascular Exam Comments: Heart was regular in rate and rhythm with no murmurs - Routine Abdominal Exam Present: soft, normoactive bowel sounds - Routine Extremities Exam Comments: No edema of the lower extremities detected. - Routine Skin Exam Present: intact, dry - Routine Neurological Exam Present: alert, vision grossly intact Patient with expressive aphasia, not able to communicate. Able to follow simple commands. Is able to respond yes or no to certain things. Has some receptive deficits as well. - Routine Psychiatric Exam Present: normal affect, cooperative Assessment and Plan - Assessment (1) Brain tumor Code(s): D49.6 - Neoplasm of unspecified behavior of brain Status: Acute - Plan Assessment: 62-year-old white male with the diagnosis of lung mass as well as brain mass. Brain mass metastatic versus primary. Patient been evaluated for possible radiosurgery treatment options. Plan: I advised the patient of the reason for the consult and the fact that he has a lung mass as well as a brain mass. He seemed to understand most of what I was explaining but is hard to know. I advised the patient that I have discussed this case with Dr. Gomez and I agree with the recommendation for a lung biopsy. The mass potentially could be metastatic versus a primary brain lesion. Discussed with Dr. Gomez it would be benefit to obtain tissue diagnosis from the brain since the patient has only 2 solitary lesions and possible metastases which could potentially be addressed and the patient could have a prolonged disease free survival time. As discussed with Dr. Gomez will proceed forward with the workup and see how the patient does in the next few days with conservative treatment and Decadron and see if the patient is able to regain some of his speech. Surgical resection of the mass within the brain followed by radiosurgery boost would be the ideal situation, but it may not be possible due to location. I advised the patient that we will proceed accordingly. I will maintain communication with Dr. Gomez in regards to how to proceed. Patient advised if I could be of any further assistance or to please let me know otherwise we will proceed as above. Dr. Gomez thank you very much for the referral of this patient allow me to participate in his care. Should you have any further questions or concerns please do not hesitate to contact me. Discussed Condition With: Dr. Gomez
[2018-02-21] MEDS: Sod Chloride 0.9% Inj 1,000 ML IV.CONT SCH ×3 (06:07→20:29)
[2018-02-21] MEDS: amLODIPine 5 MG Tablet PO SCH (09:06)
--- NOTE | 2018-02-21 09:10 | P.PNNS ---
Subjective Interval history: No acute events overnight. Physical Exam Vital signs: Vital Signs 02/20/18 12:00 02/20/18 16:00 02/20/18 20:00 Temperature 98.1 F 98.4 F 98.5 F Pulse Rate 90 88 84 Respiratory Rate 20 23 22 Blood Pressure 147/87 H 156/83 H 164/91 H Pulse Oximetry 95 97 02/21/18 00:00 02/21/18 04:00 Temperature 98.9 F 98.9 F Pulse Rate 96 H 90 Respiratory Rate 20 22 Blood Pressure 163/76 H 174/90 H Pulse Oximetry Intake & Output 02/20/18 02/21/18 02/21/18 18:59 06:59 18:59 Intake Total 905 / 905 345 / 345 Output Total 200 / 200 Balance 905 / 905 145 / 145 Weight 76.6 kg Intake: IV 105 / 105 105 / 105 Keppra Inj 500 MG In NS Inj 100 105 / 105 105 / 105 ML @ 420 mls/hr IV.SIG Q12H [facility]OUGLAS Rx#:[id number] Oral 800 / 800 240 / 240 Output: Urine 200 / 200 Other: # Voids 4 3 Date of Last Bowel Movement 02/19/18 02/20/18 Narrative: Opens eyes spontaneously and communicates PERRL EOMI Regards examiner Profound receptive aphasia Names 0/3 objects Mimics x4 with symmetric, anti-gravity strength Assessment and Plan - Assessment (1) Brain tumor Code(s): D49.6 - Neoplasm of unspecified behavior of brain Status: Acute - Plan Mr. 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 He almost certainly suffered a fall resulting in his facial ecchymoses and thoracic compression fractures. The fall may have been from a seizure event that he is unable to recall and/or communicate to us. Plan: Mr. Gtz's brain metastasis is in an eloquent region responsible for speech comprehension. Surgical resection would pose him a high risk of permanent receptive aphasia, whereas treatment with steroids and radiation would like result in some islam of speech function as his cerebral edema and local mass effect gautam. Plan for CT guided biopsy of lung nodule today. If diagnostic, would recommend radiosurgery treatment for brain lesion. If non-diagnostic, can consider surgical resection of brain lesion. Appreciate oncology and radiation oncology input. Dexamethasone 4 mg q6h -- consider starting to taper tomorrow to 2mg q6h Keppra 500 mg BID No intervention for T3/T4 compression fractures. Ok for OOB ad bassem. PT/OT DIRECTOR OF INSTITUTIONAL SALES evaluation (both for swallow and speech therapy)
[2018-02-21] MEDS: Acetaminophen 325 MG Tablet PO PRN ×2 (09:34→15:20)
--- NOTE | 2018-02-21 11:22 | P.PNIM ---
Subjective Interval history: f/u; brain tumor in no acute distress. denies pain. family at the bedside. BP trend noted. d/w the RN. Physical Exam Vital signs: Vital Signs 02/20/18 12:00 02/20/18 16:00 02/20/18 20:00 Temperature 98.1 F 98.4 F 98.5 F Pulse Rate 90 88 84 Respiratory Rate 20 23 22 Blood Pressure 147/87 H 156/83 H 164/91 H Pulse Oximetry 95 97 02/21/18 00:00 02/21/18 04:00 Temperature 98.9 F 98.9 F Pulse Rate 96 H 90 Respiratory Rate 20 22 Blood Pressure 163/76 H 174/90 H Pulse Oximetry Intake & Output 02/20/18 02/21/18 02/21/18 18:59 06:59 18:59 Intake Total 905 / 905 345 / 345 Output Total 200 / 200 Balance 905 / 905 145 / 145 Weight 76.6 kg Intake: IV 105 / 105 105 / 105 Keppra Inj 500 MG In NS Inj 100 105 / 105 105 / 105 ML @ 420 mls/hr IV.SIG Q12H DOUGLAS Rx#:[id number] Oral 800 / 800 240 / 240 Output: Urine 200 / 200 Other: # Voids 4 3 Date of Last Bowel Movement 02/19/18 02/20/18 - Constitutional no acute distress - Routine HEENT Exam Head: Present: facial swelling - Routine Respiratory Exam Present: CTA bilaterally - Routine Cardiovascular Exam Present: RRR - Routine Abdominal Exam Present: soft - Routine Extremities Exam Comments: no pedal edema. - Routine Neurological Exam Present: alert Results - Labs CBC & Chem 7: 02/20/18 04:53 02/20/18 04:53 Assessment and Plan - Plan A/P - brain tumor / with pulmonary nodule continue Dexamethasone and Keppra- neurosurgery and oncology/ radiation oncology following. for CT-guided lung biopsy today. -fall with rib fracture/ T3/ T4 fracture fall precautions- continue with pain control- conservative treatment per neurosurgery. -right tongue swelling- likely due to trauma- improving. -elevated BP; hypertension?- increase norvasc and continue to monitor and adjust the regimen as needed. -DVT/GI prophylaxis with SCD's and PPI. Discharge Planning: work-up in progress- not ready for discharge.
[2018-02-21] MEDS: Pantoprazole Inj 40 MG Vial IV.PUSH SCH (15:21)
[2018-02-22 04:33] LABS: Baso % (Auto) 0.1 % (0.0-2.0); Hematocrit 35.5 % (39.0-51.0); Hemoglobin 12.2 gm/dL (13.0-17.0); Lymph # (Auto) 0.7 th/mm3 (1.0-4.8); Lymph % (Auto) 8.3 % (9.0-44.0); Mean Corpuscular HGB Conc 34.4 % (32.0-36.0); Mean Corpuscular Hemoglobin 33.6 pg (27.0-34.0); Mean Corpuscular Volume 97.7 fL (80.0-100.0); Mean Platelet Volume 6.3 fL (7.0-11.0); Mono # (Auto) 0.8 th/mm3 (0.0-0.9); Mono % (Auto) 9.2 % (0.0-8.0); Neut # (Auto) 7.4 th/mm3 (1.8-7.7); Neut % (Auto) 82.4 % (16.0-70.0); Platelet Count 356 th/mm3 (150-450); Red Blood Count 3.64 mil/mm3 (4.50-5.90); Red Cell Distribution Width 12.7 % (11.6-17.2); White Blood Count 8.9 th/mm3 (4.0-11.0)
[2018-02-22 04:57] LABS: Albumin 3.2 g/dL (3.4-5.0); Anion Gap 9 meq/L (5-15); Aspartate Aminotransferase 18 U/L (15-37); Blood Urea Nitrogen 8 mg/dL (7-18); Calcium 8.4 mg/dL (8.5-10.1); Carbon Dioxide 30.2 meq/L (21.0-32.0); Chloride 99 meq/L (98-107); Glomerular Filtration Rate Greater Than 89 mL/min (>89); Glucose,Random 124 mg/dL (74-106); Potassium 3.7 meq/L (3.5-5.1); Sodium 138 meq/L (136-145)
[2018-02-22 04:59] LABS: Alanine Aminotransferase 20 U/L (12-78)
[2018-02-22 05:00] LABS: Alkaline Phosphatase 59 U/L (45-117); Total Protein 6.6 g/dL (6.4-8.2)
[2018-02-22] MEDS: Sod Chloride 0.9% Inj 1,000 ML IV.CONT SCH ×2 (08:47→17:38)
[2018-02-22] MEDS ORDERED: amLODIPine 5 MG Tablet PO SCH (09:00)
--- NOTE | 2018-02-22 10:41 | P.PNIM ---
Subjective Interval history: f/u; brain tumor in no acute distress. speech is improving. BP trend noted. d/w the RN at the bedside. Physical Exam Vital signs: Vital Signs 02/21/18 12:00 02/21/18 16:00 02/21/18 20:00 Temperature 99.7 F H 99.7 F H 98.9 F Pulse Rate 92 H 74 85 Respiratory Rate 21 19 24 Blood Pressure 179/85 H 180/97 H 183/95 H Pulse Oximetry 97 02/21/18 21:58 02/22/18 00:00 02/22/18 04:00 Temperature 98.1 F 99.1 F Pulse Rate 56 L 72 Respiratory Rate 22 17 18 Blood Pressure 177/89 H 165/85 H Pulse Oximetry 95 97 02/22/18 07:26 Temperature Pulse Rate Respiratory Rate 18 Blood Pressure Pulse Oximetry Intake & Output 02/21/18 02/22/18 02/22/18 18:59 06:59 18:59 Intake Total 705 / 705 1225 / 1225 700 / 700 Output Total 275 / 275 700 / 700 Balance 430 / 430 525 / 525 700 / 700 Weight 77.8 kg Intake: IV 105 / 105 1105 / 1105 700 / 700 NS Inj 1,000 ML @ 100 mls/hr IV 1000 / 1000 700 / 700 .CONT .Q10H DOUGLAS Rx#:[id number] Keppra Inj 500 MG In NS Inj 100 105 / 105 105 / 105 ML @ 420 mls/hr IV.SIG Q12H DOUGLAS Rx#:[id number] Oral 600 / 600 120 / 120 Output: Urine 275 / 275 700 / 700 Other: # Voids 2 2 Date of Last Bowel Movement 02/21/18 02/21/18 # Bowel Movements 1 - Constitutional no acute distress - Routine Respiratory Exam Present: CTA bilaterally - Routine Cardiovascular Exam Present: RRR - Routine Abdominal Exam Present: soft - Routine Extremities Exam Comments: no pedal edema. - Routine Neurological Exam Present: alert (speech is improving.) Results - Labs CBC & Chem 7: 02/22/18 04:02 02/22/18 04:02 Laboratory Results - last 24 hr 02/22/18 02/22/18 02/22/18 04:02 04:02 04:02 WBC 8.9 RBC 3.64 L Hgb 12.2 L Hct 35.5 L MCV 97.7 MCH 33.6 MCHC 34.4 RDW 12.7 Plt Count 356 MPV 6.3 L Neut % (Auto) 82.4 H Lymph % (Auto) 8.3 L [place] % (Auto) 9.2 H Eos % (Auto) 0.0 Baso % (Auto) 0.1 Neut # (Auto) 7.4 Lymph # (Auto) 0.7 L [place] # (Auto) 0.8 Eos # (Auto) 0.0 Baso # (Auto) 0.0 WBC Differential . Differential Comment Auto diff final Fibrinogen 286 Sodium 138 Potassium 3.7 Chloride 99 Carbon Dioxide 30.2 Anion Gap 9 BUN 8 Creatinine 0.68 Estimated GFR Greater than 89 Random Glucose 124 H Calcium 8.4 L Total Bilirubin 0.5 AST 18 ALT 20 Alkaline Phosphatase 59 Total Protein 6.6 D Albumin 3.2 L Assessment and Plan - Plan A/P - brain tumor / with pulmonary nodule continue Dexamethasone and Keppra- neurosurgery and oncology/ radiation oncology following. for CT-guided lung biopsy - -fall with rib fracture/ T3/ T4 fracture fall precautions- continue with pain control- conservative treatment per neurosurgery. -right tongue swelling- likely due to trauma- improving. -elevated BP; hypertension?- increased norvasc and continue to monitor and adjust the regimen as needed. -DVT/GI prophylaxis with SCD's and PPI. Discharge Planning: work-up in progress- not ready for discharge.
--- NOTE | 2018-02-22 11:20 | P.PNNS ---
Subjective Interval history: No acute events overnight. Physical Exam Vital signs: Vital Signs 02/21/18 12:00 02/21/18 16:00 02/21/18 20:00 Temperature 99.7 F H 99.7 F H 98.9 F Pulse Rate 92 H 74 85 Respiratory Rate 21 19 24 Blood Pressure 179/85 H 180/97 H 183/95 H Pulse Oximetry 97 02/21/18 21:58 02/22/18 00:00 02/22/18 04:00 Temperature 98.1 F 99.1 F Pulse Rate 56 L 72 Respiratory Rate 22 17 18 Blood Pressure 177/89 H 165/85 H Pulse Oximetry 95 97 02/22/18 07:26 Temperature Pulse Rate Respiratory Rate 18 Blood Pressure Pulse Oximetry Intake & Output 02/21/18 02/22/18 02/22/18 18:59 06:59 18:59 Intake Total 705 / 705 1225 / 1225 700 / 700 Output Total 275 / 275 700 / 700 Balance 430 / 430 525 / 525 700 / 700 Weight 77.8 kg Intake: IV 105 / 105 1105 / 1105 700 / 700 NS Inj 1,000 ML @ 100 mls/hr IV 1000 / 1000 700 / 700 .CONT .Q10H [facility] Rx#:[id number] Keppra Inj 500 MG In NS Inj 100 105 / 105 105 / 105 ML @ 420 mls/hr IV.SIG Q12H DOUGLAS Rx#:[id number] Oral 600 / 600 120 / 120 Output: Urine 275 / 275 700 / 700 Other: # Voids 2 2 Date of Last Bowel Movement 02/21/18 02/21/18 # Bowel Movements 1 Narrative: Opens eyes spontaneously PERRL EOMI Regards examiner Severe receptive aphasia Names 0/3 objects Mimics x4 with symmetric, anti-gravity strength Assessment and Plan - Assessment (1) Brain tumor Code(s): D49.6 - Neoplasm of unspecified behavior of brain Status: Acute - Plan Mr. 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 He almost certainly suffered a fall resulting in his facial ecchymoses and thoracic compression fractures. The fall may have been from a seizure event that he is unable to recall and/or communicate to us. Plan: Aphasia mildly improved this morning. Mr. Gtz's brain metastasis is in an eloquent region responsible for speech comprehension. Surgical resection would pose him a high risk of permanent receptive aphasia, whereas treatment with steroids and radiation would like result in some zoroastrianism of speech function as his cerebral edema and local mass effect gautam. Plan for CT guided biopsy of lung nodule. Delayed until 02/23/18 due to reported history of aspirin use. If diagnostic, would recommend radiosurgery treatment for brain lesion. If non-diagnostic, can consider surgical resection of brain lesion. Appreciate oncology and radiation oncology input. Dexamethasone Keppra 500 mg BID No intervention for T3/T4 compression fractures. Ok for OOB ad bassem. PT/OT Continue [employer] therapy
[2018-02-22] MEDS: Pantoprazole Inj 40 MG Vial IV.PUSH SCH (17:37)
[2018-02-23] MEDS: Sod Chloride 0.9% Inj 1,000 ML IV.CONT SCH ×4 (02:03→21:36)
--- NOTE | 2018-02-23 08:21 | P.PNIM ---
Subjective Interval history: f/u; brain tumor in no acute distress. speech much improved. BP trend noted. d/w the RN. Physical Exam Vital signs: Vital Signs 02/22/18 10:00 02/22/18 12:00 02/22/18 14:00 Temperature 98.9 F Pulse Rate 96 H 77 96 H Respiratory Rate 18 Blood Pressure 138/72 Pulse Oximetry 96 02/22/18 16:00 02/22/18 18:00 02/22/18 20:00 Temperature 100.6 F H 98.5 F Pulse Rate 84 77 99 H Respiratory Rate 22 25 H Blood Pressure 146/81 H 162/80 H Pulse Oximetry 95 93 L 02/22/18 22:00 02/23/18 00:00 02/23/18 02:00 Temperature 98.9 F Pulse Rate 79 86 65 Respiratory Rate 25 H Blood Pressure 179/87 H Pulse Oximetry 99 02/23/18 04:00 02/23/18 06:00 Temperature Pulse Rate 86 76 Respiratory Rate 17 Blood Pressure 182/95 H Pulse Oximetry 97 Intake & Output 02/22/18 02/23/18 02/23/18 18:59 06:59 18:59 Intake Total 1805 / 1805 345 / 345 Output Total 1350 / 1350 1325 / 1325 Balance 455 / 455 -980 / -980 Weight 78 kg Intake: IV 805 / 805 105 / 105 NS Inj 1,000 ML @ 100 mls/hr IV 700 / 700 .CONT .Q10H [facility] Rx#:[id number] Keppra Inj 500 MG In NS Inj 100 105 / 105 105 / 105 ML @ 420 mls/hr IV.SIG Q12H D[facility]GLAS Rx#:[id number] Oral 1000 / 1000 240 / 240 Output: Urine 1350 / 1350 1325 / 1325 Other: # Voids 4 3 Date of Last Bowel Movement 02/22/18 02/22/18 # Bowel Movements 1 0 - Constitutional no acute distress - Routine Respiratory Exam Present: CTA bilaterally - Routine Cardiovascular Exam Present: RRR - Routine Abdominal Exam Present: soft - Routine Extremities Exam Comments: no pedal edema. - Routine Neurological Exam Present: alert (speech has much improved.) Results - Labs CBC & Chem 7: 02/22/18 04:02 02/22/18 04:02 Assessment and Plan - Plan A/P - brain tumor / with pulmonary nodule continue Dexamethasone and Keppra- neurosurgery and oncology/ radiation oncology following. for CT-guided lung biopsy - -fall with rib fracture/ T3/ T4 fracture fall precautions- continue with pain control- conservative treatment per neurosurgery. -right tongue swelling- likely due to trauma- improving. -elevated BP; hypertension?- switch from Norvasc to Procardia- continue to monitor and adjust the regimen as needed. -DVT/GI prophylaxis with SCD's and PPI. Discharge Planning: for CT-guided biopsy- work-up in progress- not ready for discharge.
[2018-02-23] MEDS: Acetaminophen 325 MG Tablet PO PRN ×2 (08:40→16:38)
[2018-02-23] MEDS ORDERED: fentaNYL Citrate Inj 100 MCG/2 ML Ampul ONE ×2 (12:53→12:54)
--- NOTE | 2018-02-23 14:53 | CT ---
EXAM DATE: 02/23/2018 2:39 PM EDT AGE/SEX: 62 years / Male INDICATIONS: Left lung mass CLINICAL DATA: This is the patient's initial encounter. Patient reports that signs and symptoms have been present for 1 day and indicates a pain score of 0/10. MEDICAL/SURGICAL HISTORY: None. Brain mass None. COMPARISON: [facility], CT CHEST W/O CONTRAST, 02/18/2018. . SEDATION TIME (min): 30 min BIOPSY SITE: Left lung MEDICATION(S): 3 mg midazolam (Versed) IV 150 mcg fentanyl (Sublimaze) IV DEVICE(S): 19 gauge Introducer 20 gauge BARD biopsy needle Two core specimen(s) sent to the laboratory for pathologic evaluation. . . PROCEDURE: CT guided Left lung biopsy Prior to the procedure informed consent was obtained. Any appropriate prior imaging studies were rev iewed. Using automated exposure control and adjustment of the mA and/or kV according to patient size , radiation dose was kept as low as reasonably achievable to obtain optimal diagnostic quality images . DICOM format image data is available electronically for review and comparison. The site was prepped in a sterile fashion. Full sterile technique was used, including cap, mask, edward rile gloves and gown and a large sterile sheet. Hand hygiene and 2% chlorhexidine and/or betadine/al cohol prep was utilized per protocol for cutaneous antisepsis. The skin and subcutaneous tissues wer e infiltrated with local anesthetic solution. With CT guidance the previously identified target was localized. Biopsy was performed using the presc ribed needle as above. Adequate hemostasis was obtained with compression at the puncture site. Follow-up CT scan reveals no pneumothorax. Conscious sedation was performed with the prescribed dosages and duration as above in the presence of an independent trained radiology nurse to assist in the monitoring of the patient. EKG and oximetry remained stable throughout the procedure. The patient tolerated the procedure well and there were no complications. The patient was sent to Radiology Outpatient Unit in stable condition. CONCLUSION: Uncomplicated CT guided biopsy. Electronically signed by: Faustino Goyal MD 02/23/2018 2:52 PM EDT
--- NOTE | 2018-02-23 15:42 | P.PNONC ---
Subjective Interval history: T-max 100.6F. Patient lying in bed, alert and awake, his family is at the bedside. S/P lung biopsy today. Pathology pending Objective Vital Signs/Intake & Output: Vital Signs 02/22/18 16:00 02/22/18 18:00 02/22/18 20:00 Temperature 100.6 F H 98.5 F Pulse Rate 84 77 99 H Respiratory Rate 22 25 H Blood Pressure 146/81 H 162/80 H Pulse Oximetry 95 93 L 02/22/18 22:00 02/23/18 00:00 02/23/18 02:00 Temperature 98.9 F Pulse Rate 79 86 65 Respiratory Rate 25 H Blood Pressure 179/87 H Pulse Oximetry 99 02/23/18 04:00 02/23/18 06:00 02/23/18 08:00 Temperature 98.8 F Pulse Rate 86 76 74 Respiratory Rate 17 22 Blood Pressure 182/95 H 163/89 H Pulse Oximetry 97 97 02/23/18 10:00 02/23/18 12:00 02/23/18 14:00 Temperature Pulse Rate 69 65 86 Respiratory Rate Blood Pressure Pulse Oximetry Intake & Output 02/22/18 02/23/18 02/23/18 18:59 06:59 18:59 Intake Total 1805 / 1805 345 / 345 1105 / 1105 Output Total 1350 / 1350 1325 / 1325 Balance 455 / 455 -980 / -980 1105 / 1105 Weight 78 kg Intake: IV 805 / 805 105 / 105 1105 / 1105 NS Inj 1,000 ML @ 100 mls/hr IV 700 / 700 1000 / 1000 .CONT .Q10H D[facility]GL[facility] Rx#:[id number] Keppra Inj 500 MG In NS Inj 100 105 / 105 105 / 105 105 / 105 ML @ 420 mls/hr IV.SIG Q12H DOUGLAS Rx#:[id number] Oral 1000 / 1000 240 / 240 Output: Urine 1350 / 1350 1325 / 1325 Other: # Voids 4 3 Date of Last Bowel Movement 02/22/18 02/22/18 02/22/18 # Bowel Movements 1 0 Result Diagrams: 02/22/18 04:02 02/22/18 04:02 Imaging Studies: Impressions Lung Biopsy CT 02/23/18 00:00 CONCLUSION: Uncomplicated CT guided biopsy. Medications: Active Medications Generic Name Dose Route Start Last Admin Trade Name Freq PRN Reason Stop Dose Admin Acetaminophen 650 mg 02/18/18 15:04 02/23/18 08:40 Tylenol PO 650 mg Q4H PRN Administration fever/pain 1-10 Dexamethasone Sodium Phosphate 4 mg 02/19/18 00:00 02/23/18 11:14 Decadron Inj IV.PUSH 4 mg Q6HR DOUGLAS Administration Enalaprilat 1.25 mg 02/18/18 17:22 02/23/18 05:54 Vasotec Inj IV.PUSH 1.25 mg Q8H PRN Administration SBP > 180 or DBP > 110 Sodium Chloride 1,000 mls @ 100 mls/hr 02/18/18 13:00 02/23/18 14:34 Ns Inj IV.CONT 100 mls/hr .Q10H DOUGLAS Administration Levetiracetam 500 mg/ Sodium 105 mls @ 420 mls/hr 02/18/18 21:00 02/23/18 10: 10 Chloride IV.SIG Infused Q12H DOUGLAS Infusion Nifedipine 30 mg 02/23/18 09:00 02/23/18 08:40 Procardia Xl PO 30 mg DAILY DOUGLAS Administration Oxycodone HCl 5 mg 02/21/18 19:00 02/23/18 08:40 Roxicodone PO 5 mg Q4H PRN Administration SEVERE PAIN 6-10 Pantoprazole Sodium 40 mg 02/18/18 16:00 02/22/18 17:37 Protonix Inj IV.PUSH 40 mg Q24H DOUGLAS Administration Objective Remarks: GENERAL: Well-nourished, well-developed male patient, lying in bed, in no acute distress. SKIN: Warm and dry. Large hematomas to face and neck, multiple stages of healing. HEAD: Normocephalic. EYES: No scleral icterus. No injection or drainage. PERRLA. MOUTH: [place] moist mucous membranes. Tongue deviates right. NECK: Supple, trachea midline. CARDIOVASCULAR: Regular rate and rhythm without murmurs. RESPIRATORY: Breath sounds clear, equal bilaterally. No accessory muscle use. Clean/dry Band-Aid to left mid back, no crepitus, bleeding, or erythema. GASTROINTESTINAL: Abdomen soft, non-tender, nondistended. EXTREMITIES: No cyanosis, or edema. Sequentials to bilateral lower extremities. MUSCULOSKELETAL: Adequate muscle tone. NEUROLOGICAL: PERRLA, tongue deviates right, moving all extremities. Awake, alert, and oriented x3. Follows commands. PSYCHIATRIC: Appropriate mood and affect; insight and judgment normal. Assessment/Plan - Plan 62-year-old male patient who was found to have a 2.6 cm enhancing mass lesion in the left posterior parietal lobe characteristic for neoplastic disease, unknown primary brain versus metastatic disease. CT chest on 02/18/2018 showed a 1.6 cm nodule left lower lobe. He underwent needle biopsy of left lung today. If biopsy negative or inconclusive we may need to proceed with either surgical resection or biopsy of brain mass. Plan: 1. Status post needle biopsy of left lung today. Pathology pending. 2. Radiation oncology is consulted and following. 3. I have spoke to the patient and family today, pathology pending, all questions answered. We will notify them as soon as this is resulted.
--- NOTE | 2018-02-23 16:23 | XR ---
EXAM DATE: 02/23/2018 4:15 PM EDT AGE/SEX: 62 years / Male INDICATIONS: Evaluate for pneumothorax post left lung biopsy CLINICAL DATA: This is the patient's initial encounter. Patient reports that signs and symptoms have been present for 1 day and indicates a pain score of 0/10. MEDICAL/SURGICAL HISTORY: . brain mass None. COMPARISON: No prior exams available for comparison. FINDINGS: Lungs are symmetrically aerated and focally clear. Left lung base nodule is not appreciated on the fr ontal view. There is no evidence of pneumothorax or hemothorax post biopsy. Cardiac contours are sati sfactory for technique and projection. CONCLUSION: No pneumothorax Electronically signed by: Faustino Goyal MD 02/23/2018 4:22 PM EDT
[2018-02-23] MEDS: Pantoprazole Inj 40 MG Vial IV.PUSH SCH (16:38)
--- NOTE | 2018-02-23 21:52 | P.PNNS ---
Subjective Interval history: Needle biopsy lung today. Aphasia improving with steroids Physical Exam Vital signs: Vital Signs 02/22/18 22:00 02/23/18 00:00 02/23/18 02:00 Temperature 98.9 F Pulse Rate 79 86 65 Respiratory Rate 25 H Blood Pressure 179/87 H Pulse Oximetry 99 02/23/18 04:00 02/23/18 06:00 02/23/18 08:00 Temperature 98.8 F Pulse Rate 86 76 74 Respiratory Rate 17 22 Blood Pressure 182/95 H 163/89 H Pulse Oximetry 97 97 02/23/18 10:00 02/23/18 12:00 02/23/18 14:00 Temperature 98.4 F Pulse Rate 69 70 86 Respiratory Rate 28 H Blood Pressure 164/100 H Pulse Oximetry 28 L 02/23/18 16:00 02/23/18 18:00 02/23/18 18:07 Temperature 98.3 F Pulse Rate 76 72 Respiratory Rate 24 22 Blood Pressure 161/87 H Pulse Oximetry 100 Intake & Output 02/23/18 02/23/18 02/24/18 06:59 18:59 06:59 Intake Total 345 / 345 1105 / 1105 1000 / 1000 Output Total 1325 / 1325 950 / 950 Balance -980 / -980 155 / 155 1000 / 1000 Weight 78 kg Intake: IV 105 / 105 1105 / 1105 1000 / 1000 NS Inj 1,000 ML @ 100 mls/hr IV 1000 / 1000 1000 / 1000 .CONT .Q10H D[facility]GLAS Rx#:[id number] Keppra Inj 500 MG In NS Inj 100 105 / 105 105 / 105 ML @ 420 mls/hr IV.SIG Q12H DOUGLAS Rx#:[id number] Oral 240 / 240 Output: Urine 1325 / 1325 950 / 950 Other: # Voids 3 3 Date of Last Bowel Movement 02/22/18 02/22/18 # Bowel Movements 0 Narrative: Opens eyes spontaneously PERRL EOMI Regards examiner Severe receptive aphasia - improved compared to admission, can name president Names 0/3 objects Mimics x4 with symmetric, anti-gravity strength Assessment and Plan - Assessment (1) Brain tumor Code(s): D49.6 - Neoplasm of unspecified behavior of brain Status: Acute - Plan Mr. 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 He almost certainly suffered a fall resulting in his facial ecchymoses and thoracic compression fractures. The fall may have been from a seizure event that he is unable to recall and/or communicate to us. Plan: Aphasia mildly improved this morning. Mr. Gtz's brain metastasis is in an eloquent region responsible for speech comprehension. Surgical resection would pose him a high risk of permanent receptive aphasia, whereas treatment with steroids and radiation would like result in some rastafarian of speech function as his cerebral edema and local mass effect gautam. Plan for CT guided biopsy of lung nodule. Delayed until 02/23/18 due to reported history of aspirin use. If diagnostic, would recommend radiosurgery treatment for brain lesion. If non-diagnostic, can consider surgical resection of brain lesion. Appreciate oncology and radiation oncology input -- await results of needle biopsy today. Dexamethasone taper down to 2mg po q6. Keppra 500 mg BID No intervention for T3/T4 compression fractures. Ok for OOB ad bassem. PT/OT Continue CUTTER TENDER therapy
[2018-02-24] MEDS: Sod Chloride 0.9% Inj 1,000 ML IV.CONT SCH ×4 (00:07→21:09)
--- NOTE | 2018-02-24 09:45 | P.PNONC ---
Subjective Interval history: He is doing much better. I am now able to converse with him easily and he understands the content of conversations. Objective Vital Signs/Intake & Output: Vital Signs 02/23/18 10:00 02/23/18 12:00 02/23/18 14:00 Temperature 98.4 F Pulse Rate 69 70 86 Respiratory Rate 28 H Blood Pressure 164/100 H Pulse Oximetry 28 L 02/23/18 16:00 02/23/18 18:00 02/23/18 18:07 Temperature 98.3 F Pulse Rate 76 72 Respiratory Rate 24 22 Blood Pressure 161/87 H Pulse Oximetry 100 02/23/18 20:00 02/24/18 00:00 02/24/18 04:00 Temperature 97.3 F L 97.8 F 98.1 F Pulse Rate 96 H 72 77 Respiratory Rate 20 18 18 Blood Pressure 152/76 H 147/70 H 158/83 H Pulse Oximetry 98 98 97 02/24/18 04:37 Temperature Pulse Rate 61 Respiratory Rate Blood Pressure Pulse Oximetry Intake & Output 02/23/18 02/24/18 02/24/18 18:59 06:59 18:59 Intake Total 1105 / 1105 2105 / 2105 Output Total 950 / 950 1000 / 1000 Balance 155 / 155 1105 / 1105 Weight 77.9 kg Intake: IV 1105 / 1105 2105 / 2105 NS Inj 1,000 ML @ 100 mls/hr IV 1000 / 1000 2000 / 2000 .CONT .Q10H DOUGLAS Rx#:[id number] Keppra Inj 500 MG In NS Inj 100 105 / 105 105 / 105 ML @ 420 mls/hr IV.SIG Q12H DOUGLAS Rx#:[id number] Oral 0 / 0 Output: Urine 950 / 950 1000 / 1000 Other: # Voids 3 Date of Last Bowel Movement 02/22/18 # Bowel Movements 0 Result Diagrams: 02/22/18 04:02 02/22/18 04:02 Imaging Studies: Impressions Chest X-Ray 02/23/18 00:00 CONCLUSION: No pneumothorax Lung Biopsy CT 02/23/18 00:00 CONCLUSION: Uncomplicated CT guided biopsy. Medications: Active Medications Generic Name Dose Route Start Last Admin Trade Name Freq PRN Reason Stop Dose Admin Acetaminophen 650 mg 02/18/18 15:04 02/23/18 16:38 Tylenol PO 650 mg Q4H PRN Administration fever/pain 1-10 Dexamethasone Sodium Phosphate 2 mg 02/24/18 00:00 02/24/18 05:24 Decadron Inj IV.PUSH 2 mg Q6HR DOUGLAS Administration Enalaprilat 1.25 mg 02/18/18 17:22 02/23/18 05:54 Vasotec Inj IV.PUSH 1.25 mg Q8H PRN Administration SBP > 180 or DBP > 110 Sodium Chloride 1,000 mls @ 100 mls/hr 02/18/18 13:00 02/24/18 06:51 Ns Inj IV.CONT 100 mls/hr .Q10H DOUGLAS Administration Levetiracetam 500 mg/ Sodium 105 mls @ 420 mls/hr 02/18/18 21:00 02/24/18 08: 22 Chloride IV.SIG 420 mls/hr Q12H DOUGLAS Administration Nifedipine 30 mg 02/23/18 09:00 02/24/18 08:21 Procardia Xl PO 30 mg DAILY DOUGLAS Administration Oxycodone HCl 5 mg 02/21/18 19:00 02/24/18 06:56 Roxicodone PO 5 mg Q4H PRN Administration SEVERE PAIN 6-10 Objective Remarks: GENERAL: Well-nourished, well-developed patient. SKIN: Warm and dry. HEAD: Normocephalic. EYES: Still with periorbital ecchymosis NECK: Supple, trachea midline. No JVD or lymphadenopathy. LYMPHATIC: No adenopathy. CARDIOVASCULAR: Regular rate and rhythm without murmurs. RESPIRATORY: Breath sounds equal bilaterally. No accessory muscle use. GASTROINTESTINAL: Abdomen soft, non-tender, nondistended. EXTREMITIES: No cyanosis, or edema. MUSCULOSKELETAL: Adequate muscle tone. NEUROLOGICAL: No obvious focal deficit. Awake, alert, and and now communicates effectively. PSYCHIATRIC: Appropriate mood and affect; insight and judgment normal. Assessment/Plan - Plan 62-year-old male patient who was found to have a 2.6 cm enhancing mass lesion in the left posterior parietal lobe characteristic for neoplastic disease, unknown primary brain versus metastatic disease. CT chest on 02/18/2018 showed a 1.6 cm nodule left lower lobe. He underwent needle biopsy of left lung today. I spoke with Dr. Lima from pathology this morning. We have a definite diagnosis of malignancy. There is a possibility that this may be a melanoma and special stains are being done to determine whether we are dealing with an epithelial malignancy or a melanoma as this would have significant consequences for prognosis and treatment. If this is a melanoma it is not likely to be very radiation sensitive. If possible it would be desirable to resect the tumor with postoperative radiation therapy to the tumor bed. Following this would treat with immunotherapy with consideration of removing the lesion in the lung or using radiation therapy or simply treating with immune therapy and seeing what happens. He has no history of melanoma and examination of his skin reveals no evidence of melanoma. Lung cancer still remains high in the differential and therefore we have to wait until Tuesday before making a final decision. If this is lung cancer with a primary in the lung and a single lesion in the brain this is still a potentially curable problem and we would want to approach this with curative intent as opposed to relegating him to palliative types of treatment. The above was discussed with Dr. Blue from radiation oncology and Dr. Carmona his hospitalist. If the lesion in the brain should not be resected then then he will receive radiation. At this point I would recommend converting him to p.o. medications and allowing him to fully ambulate in the room rather than staying in bed attached to the compression stockings. At the present time I would not further decrease the Decadron
--- NOTE | 2018-02-24 11:25 | P.PNIM ---
Subjective Interval history: in no acute distress. speech continues to improve. denies pain. no new complaints. Physical Exam Vital signs: Vital Signs 02/23/18 12:00 02/23/18 14:00 02/23/18 16:00 Temperature 98.4 F 98.3 F Pulse Rate 70 86 76 Respiratory Rate 28 H 24 Blood Pressure 164/100 H 161/87 H Pulse Oximetry 28 L 100 02/23/18 18:00 02/23/18 18:07 02/23/18 20:00 Temperature 97.3 F L Pulse Rate 72 96 H Respiratory Rate 22 20 Blood Pressure 152/76 H Pulse Oximetry 98 02/24/18 00:00 02/24/18 04:00 02/24/18 04:37 Temperature 97.8 F 98.1 F Pulse Rate 72 77 61 Respiratory Rate 18 18 Blood Pressure 147/70 H 158/83 H Pulse Oximetry 98 97 02/24/18 08:00 02/24/18 10:30 Temperature 97.9 F Pulse Rate 69 Respiratory Rate 20 Blood Pressure 172/106 H 162/90 H Pulse Oximetry 97 Intake & Output 02/23/18 02/24/18 02/24/18 18:59 06:59 18:59 Intake Total 1105 / 1105 2105 / 2105 Output Total 950 / 950 1000 / 1000 Balance 155 / 155 1105 / 1105 Weight 77.9 kg Intake: IV 1105 / 1105 2105 / 2105 NS Inj 1,000 ML @ 100 mls/hr IV 1000 / 1000 2000 / 2000 .CONT .Q10H [facility] Rx#:[id number] Keppra Inj 500 MG In NS Inj 100 105 / 105 105 / 105 ML @ 420 mls/hr IV.SIG Q12H DOUGLAS Rx#:[id number] Oral 0 / 0 Output: Urine 950 / 950 1000 / 1000 Other: # Voids 3 Date of Last Bowel Movement 02/22/18 # Bowel Movements 0 - Constitutional no acute distress - Routine Respiratory Exam Present: CTA bilaterally - Routine Cardiovascular Exam Present: RRR - Routine Abdominal Exam Present: soft - Routine Extremities Exam Comments: no pedal edema. - Routine Neurological Exam Present: alert, oriented X3 Results - Labs CBC & Chem 7: 02/22/18 04:02 02/22/18 04:02 - Imaging Impressions Chest X-Ray 02/23/18 00:00 CONCLUSION: No pneumothorax Lung Biopsy CT 02/23/18 00:00 CONCLUSION: Uncomplicated CT guided biopsy. Assessment and Plan - Plan A/P - brain tumor / with pulmonary nodule s/p lung biopsy- awaiting result of biopsy ( d/w today). continue Dexamethasone and Keppra- neurosurgery and oncology/ radiation oncology following. -fall with rib fracture/ T3/ T4 fracture fall precautions- continue with pain control- conservative treatment per neurosurgery. -right tongue swelling- likely due to trauma- improving. -elevated BP; hypertension?- continue Procardia- continue to monitor and adjust the regimen as needed. -DVT/GI prophylaxis with SCD's and PPI. Discharge Planning: work-up in progress-awaiting result of lung biopsy; not ready for discharge.
--- NOTE | 2018-02-25 10:53 | P.PNIM ---
Subjective Interval history: f/u; brain tumor in no acute distress. denies pain. no headache. no new complaints. Physical Exam Vital signs: Vital Signs 02/24/18 12:00 02/24/18 16:00 02/24/18 20:00 Temperature 97.8 F 97.8 F 98.7 F Pulse Rate 82 97 H 96 H Respiratory Rate 20 20 21 Blood Pressure 169/97 H 145/87 H 162/94 H Pulse Oximetry 97 98 98 02/25/18 00:00 02/25/18 00:10 02/25/18 03:51 Temperature 98.1 F Pulse Rate 73 67 67 Respiratory Rate 20 Blood Pressure 144/63 H Pulse Oximetry 97 02/25/18 04:00 02/25/18 08:00 Temperature 97.6 F 97.8 F Pulse Rate 80 90 Respiratory Rate 18 20 Blood Pressure 170/90 H 167/99 H Pulse Oximetry 97 98 Intake & Output 02/24/18 02/25/18 02/25/18 18:59 06:59 18:59 Intake Total 1065 / 1065 1406 / 1406 105 / 105 Output Total 1300 / 1300 801 / 801 Balance -235 / -235 605 / 605 105 / 105 Weight 77.9 kg Intake: IV 705 / 705 926 / 926 105 / 105 NS Inj 1,000 ML @ 60 mls/hr IV. 600 / 600 821 / 821 CONT .[id number] [facility] Rx#:[id number] Keppra Inj 500 MG In NS Inj 100 105 / 105 105 / 105 105 / 105 ML @ 420 mls/hr IV.SIG Q12H D[facility] Rx#:[id number] Oral 360 / 360 480 / 480 Output: Urine 1300 / 1300 800 / 800 Stool 1 / 1 Other: # Voids 3 Date of Last Bowel Movement 02/22/18 02/24/18 # Bowel Movements 0 - Constitutional no acute distress - Routine Respiratory Exam Present: CTA bilaterally - Routine Cardiovascular Exam Present: RRR - Routine Abdominal Exam Present: soft - Routine Extremities Exam Comments: no pedal edema. - Routine Neurological Exam Present: alert, oriented X3 Results - Labs CBC & Chem 7: 02/22/18 04:02 02/22/18 04:02 Assessment and Plan - Plan A/P - brain tumor / with pulmonary nodule s/p lung biopsy- awaiting result of biopsy . continue Dexamethasone and Keppra- neurosurgery and oncology/ radiation oncology following. -fall with rib fracture/ T3/ T4 fracture fall precautions- continue with pain control- conservative treatment per neurosurgery. -right tongue swelling- likely due to trauma- improving. -elevated BP; hypertension?- continue Procardia- continue to monitor and adjust the regimen as needed. will consider increasing the dose of Procardia tomorrow if BP still elevated. -DVT/GI prophylaxis with SCD's and PPI. Discharge Planning: work-up in progress-awaiting result of lung biopsy; not ready for discharge.
[2018-02-25] MEDS: Sod Chloride 0.9% Inj 1,000 ML IV.CONT SCH ×5 (11:40→15:59)
--- NOTE | 2018-02-25 15:17 | P.PNNS ---
Subjective Interval history: patient reports improving speech Physical Exam Vital signs: Vital Signs 02/24/18 16:00 02/24/18 20:00 02/25/18 00:00 Temperature 97.8 F 98.7 F 98.1 F Pulse Rate 97 H 96 H 73 Respiratory Rate 20 21 20 Blood Pressure 145/87 H 162/94 H 144/63 H Pulse Oximetry 98 98 97 02/25/18 00:10 02/25/18 03:51 02/25/18 04:00 Temperature 97.6 F Pulse Rate 67 67 80 Respiratory Rate 18 Blood Pressure 170/90 H Pulse Oximetry 97 02/25/18 08:00 02/25/18 12:00 Temperature 97.8 F 97.9 F Pulse Rate 87 87 Respiratory Rate 20 20 Blood Pressure 167/99 H 164/99 H Pulse Oximetry 98 97 Intake & Output 02/24/18 02/25/18 02/25/18 18:59 06:59 18:59 Intake Total 1065 / 1065 1406 / 1406 534 / 534 Output Total 1300 / 1300 801 / 801 Balance -235 / -235 605 / 605 534 / 534 Weight 77.9 kg Intake: IV 705 / 705 926 / 926 534 / 534 NS Inj 1,000 ML @ 60 mls/hr IV. 600 / 600 821 / 821 429 / 429 CONT .[id number] [facility] Rx#:[id number] Keppra Inj 500 MG In NS Inj 100 105 / 105 105 / 105 105 / 105 ML @ 420 mls/hr IV.SIG Q12H [facility]AS Rx#:[id number] Oral 360 / 360 480 / 480 Output: Urine 1300 / 1300 800 / 800 Stool 1 / Other: # Voids 3 Date of Last Bowel Movement 02/22/18 02/24/18 # Bowel Movements 0 Narrative: E4 bright PERRL EOMI Aox self, hospital unable to repeat able to name 1/3 objects Follows commands x4 5/5 strength in the UEs and LEs Assessment and Plan - Assessment (1) Brain tumor Code(s): D49.6 - Neoplasm of unspecified behavior of brain Status: Acute - Plan Mr. 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 He almost certainly suffered a fall resulting in his facial ecchymoses and thoracic compression fractures. Due to size and location of lesion (eloquent cortex), surgical intervention would be high risk of neurological injury. Recommend tissue diagnosis through biopsy of lung lesion with likely SRS to cranial lesion. Plan: -neuro improving, continue with decadron -keppra 500 mg BID for seizure prophylaxis -Ct guided biopsy of lung lesion pending -No intervention for T3/T4 compression fractures. Ok for OOB ad bassem. -Continue SUPERVISORY EXAMINER therapy
[2018-02-26] MEDS: Sod Chloride 0.9% Inj 1,000 ML IV.CONT SCH (06:20)
--- NOTE | 2018-02-26 10:29 | P.PNIM ---
Subjective Interval history: in no acute distress. no new complaints. BP trend noted. Physical Exam Vital signs: Vital Signs 02/25/18 12:00 02/25/18 16:00 02/25/18 18:12 Temperature 97.9 F 98.1 F Pulse Rate 87 87 Respiratory Rate 20 20 18 Blood Pressure 164/99 H 175/107 H Pulse Oximetry 97 97 02/25/18 20:00 02/25/18 20:19 02/25/18 23:45 Temperature 97.8 F Pulse Rate 105 H 96 H 82 Respiratory Rate 18 Blood Pressure 156/78 H Pulse Oximetry 98 02/26/18 00:00 02/26/18 03:59 02/26/18 04:00 Temperature 98.2 F 98.1 F Pulse Rate 86 95 H 81 Respiratory Rate 19 20 Blood Pressure 166/88 H 162/80 H Pulse Oximetry 97 95 02/26/18 08:00 Temperature 97.8 F Pulse Rate 67 Respiratory Rate 20 Blood Pressure 174/92 H Pulse Oximetry 97 Intake & Output 02/25/18 02/26/18 02/26/18 18:59 06:59 18:59 Intake Total 1014 / 1014 1150 / 1150 Output Total 600 / 600 800 / 800 Balance 414 / 414 350 / 350 Weight 78.9 kg Intake: IV 534 / 534 910 / 910 NS Inj 1,000 ML @ 60 mls/hr IV. 429 / 429 805 / 805 CONT .[id number] D[facility] Rx#:[id number] Keppra Inj 500 MG In NS Inj 100 105 / 105 105 / 105 ML @ 420 mls/hr IV.SIG Q12H D[facility]GLAS Rx#:[id number] Oral 480 / 480 240 / 240 Output: Urine 600 / 600 800 / 800 Other: # Bowel Movements 1 - Constitutional no acute distress - Routine Respiratory Exam Present: CTA bilaterally - Routine Cardiovascular Exam Present: RRR - Routine Abdominal Exam Present: soft - Routine Extremities Exam Comments: no pedal edema. - Routine Neurological Exam Present: alert, oriented X3 (speech is improving.) Results - Labs CBC & Chem 7: 02/22/18 04:02 02/22/18 04:02 Assessment and Plan - Plan A/P - brain tumor / with pulmonary nodule s/p lung biopsy- awaiting result of biopsy . continue Dexamethasone and Keppra- neurosurgery and oncology/ radiation oncology following. -fall with rib fracture/ T3/ T4 fracture fall precautions- continue with pain control- conservative treatment per neurosurgery. -right tongue swelling- likely due to trauma- improving. -elevated BP; hypertension?- continue Procardia- continue to monitor and adjust the regimen as needed. will consider increasing the dose of Procardia later today if BP still elevated. -DVT/GI prophylaxis with SCD's and PPI. Discharge Planning: work-up in progress-awaiting result of lung biopsy; not ready for discharge.
--- NOTE | 2018-02-26 10:52 | P.PNNS ---
Subjective Interval history: Patient without any issues. improving language function Physical Exam Vital signs: Vital Signs 02/25/18 12:00 02/25/18 16:00 02/25/18 18:12 Temperature 97.9 F 98.1 F Pulse Rate 87 87 Respiratory Rate 20 20 18 Blood Pressure 164/99 H 175/107 H Pulse Oximetry 97 97 02/25/18 20:00 02/25/18 20:19 02/25/18 23:45 Temperature 97.8 F Pulse Rate 105 H 96 H 82 Respiratory Rate 18 Blood Pressure 156/78 H Pulse Oximetry 98 02/26/18 00:00 02/26/18 03:59 02/26/18 04:00 Temperature 98.2 F 98.1 F Pulse Rate 86 95 H 81 Respiratory Rate 19 20 Blood Pressure 166/88 H 162/80 H Pulse Oximetry 97 95 02/26/18 08:00 Temperature 97.8 F Pulse Rate 67 Respiratory Rate 20 Blood Pressure 174/92 H Pulse Oximetry 97 Intake & Output 02/25/18 02/26/18 02/26/18 18:59 06:59 18:59 Intake Total 1014 / 1014 1150 / 1150 Output Total 600 / 600 800 / 800 Balance 414 / 414 350 / 350 Weight 78.9 kg Intake: IV 534 / 534 910 / 910 NS Inj 1,000 ML @ 60 mls/hr IV. 429 / 429 805 / 805 CONT .[id number] [facility] Rx#:[id number] Keppra Inj 500 MG In NS Inj 100 105 / 105 105 / 105 ML @ 420 mls/hr IV.SIG Q12H D[facility] Rx#:[id number] Oral 480 / 480 240 / 240 Output: Urine 600 / 600 800 / 800 Other: # Bowel Movements 1 Narrative: E4 bright PERRL EOMI Aox self, hospital unable to repeat able to name 3/3 objects Follows commands x4 5/5 strength in the UEs and LEs no drift Assessment and Plan - Assessment (1) Brain tumor Code(s): D49.6 - Neoplasm of unspecified behavior of brain Status: Acute - Plan Imaging: -MRI brain: 2 cm left temporal-parietal lesion with associated loretta-lesional edema involving the supramarginal and angular gyrus -CT thoracic spine: T3 and T4 superior endplate fractures A/P: 62 yo M with left temporal lesion, lung lesion, and thoracic endplate fractures. 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 If requires further tissue for diagnosis or lesion not successfully treated by SRS on follow up imaging, would consider awake craniotomy with cortical mapping for resection. Lung lesion -path of CT guided biopsy pending Thoracic compression fractures -asymptomatic -no surgical intervention indicated
--- NOTE | 2018-02-27 08:00 | P.PNNS ---
Subjective Interval history: without any issues Physical Exam Vital signs: Vital Signs 02/26/18 08:00 02/26/18 12:00 02/26/18 16:00 Temperature 97.8 F 97.8 F 97.9 F Pulse Rate 67 90 86 Respiratory Rate 20 20 20 Blood Pressure 174/92 H 163/92 H 159/83 H Pulse Oximetry 97 97 98 02/26/18 20:00 02/27/18 00:00 02/27/18 04:00 Temperature 98.7 F 97.9 F 98.5 F Pulse Rate 105 H 80 89 Respiratory Rate 17 20 15 Blood Pressure 158/82 H 152/90 H 162/92 H Pulse Oximetry 95 97 95 Intake & Output 02/26/18 02/27/18 02/27/18 18:59 06:59 18:59 Intake Total 785 / 785 345 / 345 Output Total 950 / 950 Balance 785 / 785 -605 / -605 Weight 78.4 kg Intake: IV 305 / 305 105 / 105 Keppra Inj 500 MG In NS Inj 100 105 / 105 105 / 105 ML @ 420 mls/hr IV.SIG Q12H DOUGLAS Rx#:[id number] Oral 480 / 480 240 / 240 Output: Urine 950 / 950 Other: # Voids 4 2 Date of Last Bowel Movement 02/24/18 # Bowel Movements 0 Narrative: E4 bright PERRL EOMI Aox self, hospital unable to repeat able to name 3/3 objects Follows commands x4 5/5 strength in the UEs and LEs no drift Assessment and Plan - Assessment (1) Brain tumor Code(s): D49.6 - Neoplasm of unspecified behavior of brain Status: Acute - Plan Imaging: -MRI brain: 2 cm left temporal-parietal lesion with associated loretta-lesional edema involving the supramarginal and angular gyrus -CT thoracic spine: T3 and T4 superior endplate fractures A/P: 62 yo M with left temporal lesion, lung lesion, and thoracic endplate fractures. 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 If requires further tissue for diagnosis or lesion not successfully treated by SRS on follow up imaging, would consider awake craniotomy with cortical mapping for resection. Lung lesion -path of CT guided biopsy pending Thoracic compression fractures -asymptomatic -no surgical intervention indicated
--- NOTE | 2018-02-27 10:46 | P.PNIM ---
Subjective Interval history: f/u; brain tumor in no distress. speech is much better today. no new complaints. d/w the RN and no acute issues over night. Physical Exam Vital signs: Vital Signs 02/26/18 12:00 02/26/18 16:00 02/26/18 20:00 Temperature 97.8 F 97.9 F 98.7 F Pulse Rate 90 86 105 H Respiratory Rate 20 20 17 Blood Pressure 163/92 H 159/83 H 158/82 H Pulse Oximetry 97 98 95 02/27/18 00:00 02/27/18 04:00 02/27/18 08:00 Temperature 97.9 F 98.5 F 98.0 F Pulse Rate 80 89 94 H Respiratory Rate 20 15 20 Blood Pressure 152/90 H 162/92 H 167/98 H Pulse Oximetry 97 95 95 Intake & Output 02/26/18 02/27/18 02/27/18 18:59 06:59 18:59 Intake Total 785 / 785 345 / 345 105 / 105 Output Total 950 / 950 Balance 785 / 785 -605 / -605 105 / 105 Weight 78.4 kg Intake: IV 305 / 305 105 / 105 105 / 105 Keppra Inj 500 MG In NS Inj 100 105 / 105 105 / 105 105 / 105 ML @ 420 mls/hr IV.SIG Q12H DOUGLAS Rx#:[id number] Oral 480 / 480 240 / 240 Output: Urine 950 / 950 Other: # Voids 4 2 Date of Last Bowel Movement 02/24/18 # Bowel Movements 0 - Constitutional no acute distress - Routine Respiratory Exam Present: CTA bilaterally - Routine Cardiovascular Exam Present: RRR - Routine Abdominal Exam Present: soft - Routine Extremities Exam Comments: no pedal edema. - Routine Neurological Exam Present: alert, oriented X3 Results - Labs CBC & Chem 7: 02/22/18 04:02 02/22/18 04:02 Assessment and Plan - Plan A/P - brain tumor / with pulmonary nodule s/p lung biopsy- awaiting result of biopsy . continue Dexamethasone and Keppra- neurosurgery and oncology/ radiation oncology following. -fall with rib fracture/ T3/ T4 fracture fall precautions- continue with pain control- conservative treatment per neurosurgery. -right tongue swelling- likely due to trauma- improving. -elevated BP; hypertension?- continue Procardia- continue to monitor and adjust the regimen as needed. will increase the dose of Procardia to 60 mg po daily. -DVT/GI prophylaxis with SCD's and PPI. Discharge Planning: work-up in progress-awaiting result of lung biopsy; not ready for discharge.
--- NOTE | 2018-02-27 18:40 | P.PNONC ---
Subjective Interval history: The patient is doing better. He still does struggle with finding some words. No focal weakness. Objective Vital Signs/Intake & Output: Vital Signs 02/26/18 20:00 02/27/18 00:00 02/27/18 04:00 Temperature 98.7 F 97.9 F 98.5 F Pulse Rate 105 H 80 89 Respiratory Rate 17 20 15 Blood Pressure 158/82 H 152/90 H 162/92 H Pulse Oximetry 95 97 95 02/27/18 08:00 02/27/18 12:00 02/27/18 16:00 Temperature 98.0 F 98.4 F Pulse Rate 94 H 92 H 68 Respiratory Rate 20 20 Blood Pressure 167/98 H 159/89 H Pulse Oximetry 95 96 Intake & Output 02/26/18 02/27/18 02/27/18 18:59 06:59 18:59 Intake Total 785 / 785 345 / 345 805 / 805 Output Total 950 / 950 Balance 785 / 785 -605 / -605 805 / 805 Weight 78.4 kg Intake: IV 305 / 305 105 / 105 105 / 105 Keppra Inj 500 MG In NS Inj 100 105 / 105 105 / 105 105 / 105 ML @ 420 mls/hr IV.SIG Q12H DOUGLAS Rx#:[id number] Oral 480 / 480 240 / 240 700 / 700 Output: Urine 950 / 950 Other: # Voids 4 2 # Urine Diapers 5 Date of Last Bowel Movement 02/24/18 # Bowel Movements 0 Result Diagrams: 02/22/18 04:02 02/22/18 04:02 Medications: Active Medications Generic Name Dose Route Start Last Admin Trade Name Freq PRN Reason Stop Dose Admin Acetaminophen 650 mg 02/18/18 15:04 02/23/18 16:38 Tylenol PO 650 mg Q4H PRN Administration fever/pain 1-10 Dexamethasone Sodium Phosphate 2 mg 02/24/18 00:00 02/27/18 17:49 Decadron Inj IV.PUSH 2 mg Q6HR DOUGLAS Administration Enalaprilat 1.25 mg 02/18/18 17:22 02/23/18 05:54 Vasotec Inj IV.PUSH 1.25 mg Q8H PRN Administration SBP > 180 or DBP > 110 Sodium Chloride 1,000 mls @ 60 mls/hr 02/18/18 13:00 02/26/18 12:28 Ns Inj IV.CONT Infused .[id number] DOUGLAS Infusion Levetiracetam 500 mg/ Sodium 105 mls @ 420 mls/hr 02/18/18 21:00 02/27/18 09: 30 Chloride IV.SIG Infused Q12H DOUGLAS Infusion Oxycodone HCl 5 mg 02/21/18 19:00 02/27/18 16:10 Roxicodone PO 5 mg Q4H PRN Administration SEVERE PAIN 6-10 Pantoprazole Sodium 40 mg 02/24/18 09:00 02/27/18 08:33 Protonix PO 40 mg DAILY DOUGLAS Administration Objective Remarks: GENERAL: Well-nourished, well-developed patient. SKIN: Warm and dry. HEAD: Normocephalic. EYES: Periorbital ecchymoses NECK: Supple, trachea midline. No JVD or lymphadenopathy. LYMPHATIC: No adenopathy. CARDIOVASCULAR: Regular rate and rhythm without murmurs. RESPIRATORY: Breath sounds equal bilaterally. No accessory muscle use. GASTROINTESTINAL: Abdomen soft, non-tender, nondistended. EXTREMITIES: No cyanosis, or edema. MUSCULOSKELETAL: Adequate muscle tone. NEUROLOGICAL: still has residual expressive aphasia which is mild. PSYCHIATRIC: Appropriate mood and affect; insight and judgment normal. Assessment/Plan - Plan I spoke with Dr. Lima from the department of pathology this morning. In addition the final pathology report is back. He has metastatic melanoma. At the present time the only 2 sites of identifiable disease are the single lesion in the lung and the single lesion in the NET APPLICATIONS DEVELOPER. I have spoken with Dr. Blue from radiation oncology this morning and with neurosurgery, Dr. Park. The patient will have an additional opinion regarding resection of the lesion in the brain. If surgery is not felt to be prudent then Dr. Blue will proceed with radiation as quickly as possible as his melanoma is symptomatic and if it should bleed it could be catastrophic. Dr. Blue feels that the likelihood of radiation controlling the NET APPLICATIONS DEVELOPER disease is about 50% if surgery is not used upfront. Dr. Park indicates that surgery can be used to salvage a radiation failure. Following treatment of the NET APPLICATIONS DEVELOPER lesion I will do a PET scan. If the PET scan shows additional disease outside of the lung, I will proceed immediately with immunotherapy. If the only disease is limited to the lung it would be reasonable to consider either surgical resection or more likely stereotactic radiotherapy to the lung lesion followed by immunotherapy. The patient's niece was present and I went through the MRI image of the brain and the CAT scan of the chest with the patient and niece. They have a very good understanding of the process moving forward and our desire to make the best decisions regarding immediate surgery or surgery only if radiation was unsuccessful and systemic disease is reasonably well controlled. Hopefully he will go home tomorrow. I would like to see him about 10 days after discharge. By then he will probably have completed radiation unless he undergoes surgery in the immediate future.
--- NOTE | 2018-02-28 11:39 | P.PNIM ---
Subjective Interval history: f/u; metastatic melanoma in no acute distress. no new complaints. Physical Exam Vital signs: Vital Signs 02/27/18 12:00 02/27/18 16:00 02/27/18 20:00 Temperature 98.4 F 97.9 F 97.9 F Pulse Rate 92 H 86 107 H Respiratory Rate 20 20 18 Blood Pressure 159/89 H 188/116 H 156/98 H Pulse Oximetry 96 93 L 98 02/27/18 23:43 02/28/18 00:00 02/28/18 04:00 Temperature 98.0 F 98.1 F Pulse Rate 73 76 64 Respiratory Rate 18 18 Blood Pressure 158/90 H 154/58 H Pulse Oximetry 95 98 02/28/18 04:01 02/28/18 08:00 Temperature Pulse Rate 69 81 Respiratory Rate Blood Pressure Pulse Oximetry Intake & Output 02/27/18 02/28/18 02/28/18 18:59 06:59 18:59 Intake Total 1765 / 1765 345 / 345 Balance 1765 / 1765 345 / 345 Weight 78.1 kg Intake: IV 105 / 105 105 / 105 Keppra Inj 500 MG In NS Inj 100 105 / 105 105 / 105 ML @ 420 mls/hr IV.SIG Q12H DOUGLAS Rx#:[id number] Oral 1660 / 1660 240 / 240 Other: # Voids 4 4 # Urine Diapers 5 # Bowel Movements 2 0 - Constitutional no acute distress - Routine Respiratory Exam Present: CTA bilaterally - Routine Cardiovascular Exam Present: RRR - Routine Abdominal Exam Present: soft - Routine Extremities Exam Comments: no pedal edema. - Routine Neurological Exam Present: alert, oriented X3 Results - Labs CBC & Chem 7: 02/22/18 04:02 02/22/18 04:02 Assessment and Plan - Plan A/P - metastatic melanoma with brain tunor s/p lung biopsy. continue Dexamethasone and Keppra- neurosurgery and oncology/ radiation oncology following. neurosurgery was reconsulted for second-opinion on tumor resection. -fall with rib fracture/ T3/ T4 fracture fall precautions- continue with pain control- conservative treatment per neurosurgery. -right tongue swelling- likely due to trauma- improving. -elevated BP; hypertension?- continue Procardia- continue to monitor and adjust the regimen as needed. increased the dose of Procardia to 60 mg po daily. -DVT/GI prophylaxis with SCD's and PPI. Discharge Planning: work-up in progress- not ready for discharge.
--- NOTE | 2018-02-28 18:02 | P.PNNS ---
Subjective Interval history: Pt seen in conjunction with Dr. Packer. Pt states his speech has improved some. He denies headache. No numbness or tingling in face or extremities. <Luca Ortiz - Last Filed: 02/28/18 17:54> Physical Exam Vital signs: Vital Signs 02/27/18 20:00 02/27/18 23:43 02/28/18 00:00 Temperature 97.9 F 98.0 F Pulse Rate 107 H 73 76 Respiratory Rate 18 18 Blood Pressure 156/98 H 158/90 H Pulse Oximetry 98 95 02/28/18 04:00 02/28/18 04:01 02/28/18 08:00 Temperature 98.1 F Pulse Rate 64 69 81 Respiratory Rate 18 Blood Pressure 154/58 H Pulse Oximetry 98 02/28/18 12:00 02/28/18 15:17 Temperature 97.1 F L 97.3 F L Pulse Rate 96 H 104 H Respiratory Rate 18 20 Blood Pressure 157/79 H 175/92 H Pulse Oximetry 97 98 Intake & Output 02/27/18 02/28/18 02/28/18 18:59 06:59 18:59 Intake Total 1765 / 1765 345 / 345 945 / 945 Output Total 600 / 600 Balance 1765 / 1765 345 / 345 345 / 345 Weight 78.1 kg Intake: IV 105 / 105 105 / 105 105 / 105 Keppra Inj 500 MG In NS Inj 100 105 / 105 105 / 105 105 / 105 ML @ 420 mls/hr IV.SIG Q12H DOUGLAS Rx#:[id number] Oral 1660 / 1660 240 / 240 840 / 840 Output: Urine 600 / 600 Other: # Voids 4 4 # Urine Diapers 5 # Bowel Movements 2 0 1 - Constitutional no acute distress, cooperative - Routine HEENT Exam Head: Absent: normocephalic (Extensive ecchymosis on face bilaterally and under his chin area.), atraumatic Eye: Present: PERRL (Pupils 4mm bilaterally reactive bilaterally.). Absent: conjunctival icterus ENT: Present: oropharynx clear - Routine Neck Exam Present: trachea midline - Routine Respiratory Exam Present: CTA bilaterally. Absent: respiratory distress, rhonchi, wheezes - Routine Cardiovascular Exam Present: RRR, S1, S2. Absent: murmur - Routine Abdominal Exam Present: soft, normoactive bowel sounds. Absent: tenderness, distended, firm - Routine Skin Exam Present: ecchymosis (Extensive ecchymosis bilateral face and under chin as well as bilateral forearms.). Absent: cyanosis, erythema - Routine Neurological Exam Present: alert, moving all extremities. Absent: sensory deficit, motor deficit , normal speech (Severe expressive aphasia.) - Routine Psychiatric Exam Present: cooperative. Absent: depressed, anxious, agitated <Luca Ortiz - Last Filed: 02/28/18 17:54> Vital signs: Vital Signs 02/27/18 20:00 02/27/18 23:43 02/28/18 00:00 Temperature 97.9 F 98.0 F Pulse Rate 107 H 73 76 Respiratory Rate 18 18 Blood Pressure 156/98 H 158/90 H Pulse Oximetry 98 95 02/28/18 04:00 02/28/18 04:01 02/28/18 08:00 Temperature 98.1 F Pulse Rate 64 69 81 Respiratory Rate 18 Blood Pressure 154/58 H Pulse Oximetry 98 02/28/18 12:00 02/28/18 15:17 Temperature 97.1 F L 97.3 F L Pulse Rate 96 H 104 H Respiratory Rate 18 20 Blood Pressure 157/79 H 175/92 H Pulse Oximetry 97 98 Intake & Output 02/27/18 02/28/18 02/28/18 18:59 06:59 18:59 Intake Total 1765 / 1765 345 / 345 945 / 945 Output Total 600 / 600 Balance 1765 / 1765 345 / 345 345 / 345 Weight 78.1 kg Intake: IV 105 / 105 105 / 105 105 / 105 Keppra Inj 500 MG In NS Inj 100 105 / 105 105 / 105 105 / 105 ML @ 420 mls/hr IV.SIG Q12H DOUGLAS Rx#:[id number] Oral 1660 / 1660 240 / 240 840 / 840 Output: Urine 600 / 600 Other: # Voids 4 4 # Urine Diapers 5 # Bowel Movements 2 0 1 <Ron Packer - Last Filed: 02/28/18 18:44> Assessment and Plan - Assessment (1) Brain tumor Code(s): D49.6 - Neoplasm of unspecified behavior of brain Status: Acute - Plan Imaging: -MRI brain: 2 cm left temporal-parietal lesion with associated loretta-lesional edema involving the supramarginal and angular gyrus -CT thoracic spine: T3 and T4 superior endplate fractures A/P: 62 yo M with left temporal lesion, lung lesion, and thoracic endplate fractures. 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 Packer has discussed with pt that surgery on his brain carries a significant risk of causing complete expressive aphasia. He recommends radiation to the mass and monitoring his response to treatment. Pt will also discuss with his family. Lung lesion -path of CT guided biopsy revealed metastatic melanoma. Thoracic compression fractures -asymptomatic -no surgical intervention indicated <Luca Ortiz - Last Filed: 02/28/18 17:54> - Attending Attestation The exam, history, and the medical decision-making described in the above note were completed with the assistance of the mid-level provider. I reviewed and agree with the findings presented. I attest that I had a [id number] encounter with the patient on the same day, and personally performed and documented my assessment and findings in the medical record. Patient has had 3 different neurosurgical opinions during the current hospitalization all relating significantly increased risk for aphasia with a resection of this posterior dominant temporal lobe mass. A 4th neurosurgical opinion has been requested and I concur with the previous recommendations. <Ron Packer - Last Filed: 02/28/18 18:44>
--- NOTE | 2018-03-01 08:23 | P.PNONC ---
Subjective Interval history: I went into the room today to tell the patient that he would be discharged and receive outpatient radiation therapy. It was apparent he was in pain and he showed me a area of swelling and redness over the right forearm Objective Vital Signs/Intake & Output: Vital Signs 02/28/18 12:00 02/28/18 15:17 02/28/18 20:00 Temperature 97.1 F L 97.3 F L 97.9 F Pulse Rate 96 H 104 H 89 Respiratory Rate 18 20 18 Blood Pressure 157/79 H 175/92 H 187/106 H Pulse Oximetry 97 98 97 02/28/18 23:00 03/01/18 00:00 03/01/18 03:10 Temperature 97.8 F 98.1 F Pulse Rate 93 H 100 H 92 H Respiratory Rate 18 16 Blood Pressure 183/104 H 158/82 H Pulse Oximetry 98 98 03/01/18 04:00 Temperature Pulse Rate 81 Respiratory Rate Blood Pressure Pulse Oximetry Intake & Output 02/28/18 03/01/18 03/01/18 18:59 06:59 18:59 Intake Total 945 / 945 105 / 105 Output Total 600 / 600 Balance 345 / 345 105 / 105 Weight 78.3 kg Intake: IV 105 / 105 105 / 105 Keppra Inj 500 MG In NS Inj 100 105 / 105 105 / 105 ML @ 420 mls/hr IV.SIG Q12H DOUGLAS Rx#:[id number] Oral 840 / 840 Output: Urine 600 / 600 Other: Date of Last Bowel Movement 02/28/18 # Bowel Movements 1 Result Diagrams: 02/22/18 04:02 02/22/18 04:02 Medications: Active Medications Generic Name Dose Route Start Last Admin Trade Name Freq PRN Reason Stop Dose Admin Acetaminophen 650 mg 02/18/18 15:04 02/23/18 16:38 Tylenol PO 650 mg Q4H PRN Administration fever/pain 1-10 Dexamethasone Sodium Phosphate 2 mg 02/24/18 00:00 03/01/18 05:18 Decadron Inj IV.PUSH 2 mg Q6HR DOUGLAS Administration Enalaprilat 1.25 mg 02/18/18 17:22 02/28/18 22:54 Vasotec Inj IV.PUSH 1.25 mg Q8H PRN Administration SBP > 180 or DBP > 110 Sodium Chloride 1,000 mls @ 60 mls/hr 02/18/18 13:00 02/26/18 12:28 Ns Inj IV.CONT Infused .[id number] DOUGLAS Infusion Levetiracetam 500 mg/ Sodium 105 mls @ 420 mls/hr 02/18/18 21:00 02/28/18 21: 34 Chloride IV.SIG Infused Q12H DOUGLAS Infusion Nifedipine 60 mg 02/28/18 09:00 02/28/18 08:21 Procardia Xl PO 60 mg DAILY DOUGLAS Administration Oxycodone HCl 5 mg 02/21/18 19:00 03/01/18 06:24 Roxicodone PO 5 mg Q4H PRN Administration SEVERE PAIN 6-10 Pantoprazole Sodium 40 mg 02/24/18 09:00 02/28/18 08:21 Protonix PO 40 mg DAILY DOUGLAS Administration Objective Remarks: GENERAL: Well-nourished, well-developed patient. SKIN: Warm and dry. HEAD: Normocephalic. EYES: No scleral icterus. No injection or drainage. NECK: Supple, trachea midline. No JVD or lymphadenopathy. LYMPHATIC: No adenopathy. CARDIOVASCULAR: Regular rate and rhythm without murmurs. RESPIRATORY: Breath sounds equal bilaterally. No accessory muscle use. GASTROINTESTINAL: Abdomen soft, non-tender, nondistended. EXTREMITIES: There is a 4 -5 cm area of phlebitis and/or cellulitis over the right forearm which I suspect was at a previous IV site. It is red, warm, raised and very tender MUSCULOSKELETAL: Adequate muscle tone. NEUROLOGICAL: Speech continues to improve and almost normal PSYCHIATRIC: Appropriate mood and affect; insight and judgment normal. Assessment/Plan - Plan 1: Unfortunately the patient now has an area of phlebitis or cellulitis involving the forearm. Case discussed with his hospitalist Dr. Rangel and the patient will probably require warm soaks and antibiotics. Dr. Rangel will be seeing him this morning. This may briefly delay his discharge. 2: Neurosurgery feels unanimously that surgery is not indicated and that he should receive radiation as the first treatment modality. I appreciate the help from all the consultants. I have spoken with Dr. Blue this AM who is already in the process of arranging for simulation. The patient can go home when Dr. Rangel feels appropriate and would discharge on Decadron 4 mg p.o. twice daily and Keppra. I will see him in approximately 10 days and will arrange for an outpatient PET scan to evaluate extent of disease and begin the process of arranging for immune therapy. No further recommendations
--- NOTE | 2018-03-01 10:18 | P.PNIM ---
Subjective Interval history: f/u; brain tumor in no acute distress. but very uncomfortable with the pain to the right forearm. noted some erythema at the site. no fever. family at the bedside. Physical Exam Vital signs: Vital Signs 02/28/18 12:00 02/28/18 15:17 02/28/18 20:00 Temperature 97.1 F L 97.3 F L 97.9 F Pulse Rate 96 H 104 H 89 Respiratory Rate 18 20 18 Blood Pressure 157/79 H 175/92 H 187/106 H Pulse Oximetry 97 98 97 02/28/18 23:00 03/01/18 00:00 03/01/18 03:10 Temperature 97.8 F 98.1 F Pulse Rate 93 H 100 H 92 H Respiratory Rate 18 16 Blood Pressure 183/104 H 158/82 H Pulse Oximetry 98 98 03/01/18 04:00 Temperature Pulse Rate 81 Respiratory Rate Blood Pressure Pulse Oximetry Intake & Output 02/28/18 03/01/18 03/01/18 18:59 06:59 18:59 Intake Total 945 / 945 105 / 105 Output Total 600 / 600 Balance 345 / 345 105 / 105 Weight 78.3 kg Intake: IV 105 / 105 105 / 105 Keppra Inj 500 MG In NS Inj 100 105 / 105 105 / 105 ML @ 420 mls/hr IV.SIG Q12H DOUGLAS Rx#:[id number] Oral 840 / 840 Output: Urine 600 / 600 Other: Date of Last Bowel Movement 02/28/18 # Bowel Movements 1 - Constitutional no acute distress - Routine Respiratory Exam Present: CTA bilaterally - Routine Cardiovascular Exam Present: RRR - Routine Abdominal Exam Present: soft - Routine Extremities Exam Comments: swelling/ tenderness of the right forearm. - Routine Skin Exam Present: erythema (over the right forearm.) - Routine Neurological Exam Present: alert, oriented X3 Results - Labs CBC & Chem 7: 02/22/18 04:02 02/22/18 04:02 Assessment and Plan - Plan A/P - metastatic melanoma with brain tunor s/p lung biopsy. continue Dexamethasone and Keppra- neurosurgery and oncology/ radiation oncology following. no surgery per neurosurgery- cleared for discharge by oncology; f/u with oncology and radiation oncology as outpatient. -fall with rib fracture/ T3/ T4 fracture fall precautions- continue with pain control- conservative treatment per neurosurgery. -right tongue swelling- likely due to trauma- improving. -elevated BP; hypertension?- continue Procardia- continue to monitor and adjust the regimen as needed. increased the dose of Procardia to 60 mg po daily. -swelling/ erythema over the right forearm- likely cellulitis- check venous doppler- start on Ancef- keep the right hand elevated- -DVT/GI prophylaxis with SCD's and PPI. Discharge Planning: d/w the patient and family; he's willing to go to rehab. case management consulted. dc planning; within the next 24-48 hrs.
--- NOTE | 2018-03-01 11:41 | US ---
EXAM DATE: 03/01/2018 11:33 AM EDT AGE/SEX: 62 years / Male INDICATIONS: Right forearm pain. CLINICAL DATA: This is the patient's initial encounter. Patient reports that signs and symptoms have been present for 1 day and indicates a pain score of 6/10. MEDICAL/SURGICAL HISTORY: Arthritis. Rib fracture. Encephalopathy. Metastatic melanoma with bra in tumor. . Bilateral hand surgery/pins. Lung biopsy. COMPARISON: No prior exams available for comparison. FINDINGS: There are abnormal intraluminal echoes with lack of rash and of the cephalic vein in the p roximal forearm. This vessel also demonstrates no blood flow through this area. The remaining veins of the right upper extremity are patent including the subclavian, axillary, brach ial, and basilic. Also, the internal jugular vein is patent. Other: None. CONCLUSION: 1. There is occlusive thrombus within the right cephalic vein in the proximal forearm. 2. The remaining veins of the right upper extremity are patent. Electronically signed by: Faustino Mckeon MD 03/01/2018 11:39 AM EDT
[2018-03-01] MEDS ORDERED: HYDROmorphone PF Inj 0.5 MG/0.5 ML Syringe IV.PUSH ONE (13:30)
[2018-03-01] MEDS ORDERED: HYDROmorphone PF Inj 2 MG/ML Vial IV.PUSH ONE (13:30)
--- NOTE | 2018-03-01 16:40 | P.PNNS ---
Subjective Interval history: 03/01: speech continues to improve, had planned for discharge today however developed pain and swelling right arm - medical team aware. Physical Exam Vital signs: Vital Signs 02/28/18 20:00 02/28/18 23:00 03/01/18 00:00 Temperature 97.9 F 97.8 F Pulse Rate 89 93 H 100 H Respiratory Rate 18 18 Blood Pressure 187/106 H 183/104 H Pulse Oximetry 97 98 03/01/18 03:10 03/01/18 04:00 03/01/18 08:00 Temperature 98.1 F Pulse Rate 92 H 81 112 H Respiratory Rate 16 Blood Pressure 158/82 H Pulse Oximetry 98 03/01/18 14:20 Temperature Pulse Rate Respiratory Rate 9 L Blood Pressure Pulse Oximetry Intake & Output 02/28/18 03/01/18 03/01/18 18:59 06:59 18:59 Intake Total 945 / 945 105 / 105 / 205 Output Total 600 / 600 Balance 345 / 345 105 / 105 / Weight 78.3 kg Intake: IV 105 / 105 105 / 105 / Ancef Inj 1,000 MG In NS Inj 100 / 100 100 ML @ 200 mls/hr IV.SIG Q8H DOUGLAS Rx#:[id number] Keppra Inj 500 MG In NS Inj 100 105 / 105 105 / 105 105 / 105 ML @ 420 mls/hr IV.SIG Q12H DOUGLAS Rx#:[id number] Oral 840 / 840 Output: Urine 600 / 600 Other: Date of Last Bowel Movement 02/28/18 02/28/18 # Bowel Movements 1 Narrative: Alert, conversing well with mild dysphasia. Follows commands without difficulties diffuse facial ecchymoses pupils equal, facial motor symmetric Motor: moving all four extremities, right arm limited due to pain and swelling ambulating unassisted Assessment and Plan - Plan Imaging: -MRI brain: 2 cm left temporal-parietal lesion with associated loretta-lesional edema involving the supramarginal and angular gyrus -CT thoracic spine: T3 and T4 superior endplate fractures A/P: 62 yo M with left temporal lesion, lung lesion, and thoracic endplate fractures. 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 Packer's evaluation and discussion with the patient yesterday that surgery on his brain carries a significant risk of causing complete expressive aphasia. He recommends radiation to the mass and monitoring his response to treatment. Lung lesion -path of CT guided biopsy revealed metastatic melanoma. Thoracic compression fractures -asymptomatic -no surgical intervention indicated
[2018-03-01] MEDS ORDERED: oxyCODONE 10 MG Controlled Release Tablet PO PRN (17:45)
[2018-03-01] MEDS ORDERED: Metoprolol Tartrate 25 MG Tablet PO ONE (20:46)
[2018-03-01] MEDS: Acetaminophen 325 MG Tablet PO PRN (21:13)
--- NOTE | 2018-03-02 11:11 | P.PNIM ---
Subjective Interval history: in no acute distress. still with some swelling of the right forearm but pain is better. no fever. no new complaints. Physical Exam Vital signs: Vital Signs 03/01/18 12:00 03/01/18 14:20 03/01/18 16:00 Temperature Pulse Rate 105 H 114 H Respiratory Rate 9 L Blood Pressure Pulse Oximetry 03/01/18 18:18 03/01/18 20:00 03/01/18 23:31 Temperature 97.9 F 98.6 F Pulse Rate 125 H 85 Respiratory Rate 18 18 Blood Pressure 168/110 H 168/99 H 152/95 H Pulse Oximetry 98 96 03/02/18 00:00 03/02/18 03:42 03/02/18 04:00 Temperature 98.6 F Pulse Rate 81 70 76 Respiratory Rate 18 Blood Pressure 120/69 Pulse Oximetry 97 03/02/18 08:00 Temperature 97.8 F Pulse Rate 95 H Respiratory Rate 17 Blood Pressure 161/100 H Pulse Oximetry 97 Intake & Output 03/01/18 03/02/18 03/02/18 18:59 06:59 18:59 Intake Total 805 / 805 305 / 305 105 / 105 Balance 805 / 805 305 / 305 105 / 105 Intake: IV 205 / 205 305 / 305 105 / 105 Ancef Inj 1,000 MG In NS Inj 100 / 100 200 / 200 100 ML @ 200 mls/hr IV.SIG Q8H [facility] Rx#:[id number] Keppra Inj 500 MG In NS Inj 100 105 / 105 105 / 105 105 / 105 ML @ 420 mls/hr IV.SIG Q12H D[facility] Rx#:[id number] Oral 600 / 600 Other: # Voids 4 Date of Last Bowel Movement 02/28/18 # Bowel Movements 1 - Constitutional no acute distress - Routine Respiratory Exam Present: CTA bilaterally - Routine Cardiovascular Exam Present: RRR - Routine Abdominal Exam Present: soft - Routine Extremities Exam Comments: right forearm is swollen. - Routine Neurological Exam Present: alert, oriented X3 Results - Labs CBC & Chem 7: 02/22/18 04:02 02/22/18 04:02 - Imaging Impressions Venous Doppler Study 03/01/18 00:00 CONCLUSION: 1. There is occlusive thrombus within the right cephalic vein in the proximal forearm. 2. The remaining veins of the right upper extremity are patent. 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 continue Dexamethasone and Keppra- neurosurgery and oncology/ radiation oncology following. no surgery per neurosurgery- cleared for discharge by oncology; f/u with oncology and radiation oncology as outpatient. -fall with rib fracture/ T3/ T4 fracture fall precautions- continue with pain control- conservative treatment per neurosurgery. -right tongue swelling- likely due to trauma- improving. -elevated BP; hypertension?- continue Procardia- continue to monitor and adjust the regimen as needed. increased the dose of Procardia to 60 mg po daily. -superficial phlebitis. cellulitis of the right forearm- likely cellulitis- continue antibiotic. keep the right hand elevated- -DVT/GI prophylaxis with SCD's and PPI. Discharge Planning: d/w the patient and family; he's willing to go to rehab. case management consulted. dc planning; within the next 24 hrs.
--- NOTE | 2018-03-02 12:42 | ECG ---
Date Performed: 03/01/2018 Time Performed: 21:05:44 PTAGE: 62 years EKG: Possible ectopic atrial tachycardia Extensive ST-T changes are nonspecific Borderline ECG NO PREVIOUS TRACING DOCTOR: Antonio Forbes Interpretating Date/Time 03/02/2018 12:37:12
[2018-03-03] MEDS: Acetaminophen 325 MG Tablet PO PRN (03:02)
--- NOTE | 2018-03-03 09:21 | P.PNIM ---
Subjective Interval history: f/u; brain tumor. in no acute distress. pain to the right forearm has much improved. no fever. no new complaints. Physical Exam Vital signs: Vital Signs 03/02/18 12:00 03/02/18 16:00 03/02/18 20:00 Temperature 98.4 F 97.8 F 97.9 F Pulse Rate 100 H 110 H 104 H Respiratory Rate 17 17 21 Blood Pressure 177/82 H 146/81 H 176/88 H Pulse Oximetry 97 97 99 03/03/18 00:00 03/03/18 04:00 03/03/18 05:07 Temperature 98.2 F 98.2 F 98.2 F Pulse Rate 87 97 H 97 H Respiratory Rate 19 21 20 Blood Pressure 146/82 H 137/63 145/91 H Pulse Oximetry 96 95 96 Intake & Output 03/02/18 03/03/18 03/03/18 18:59 06:59 18:59 Intake Total 1105 / 1105 647 / 647 Balance 1105 / 1105 647 / 647 Weight 80.7 kg Intake: IV 105 / 105 205 / 205 Ancef Inj 1,000 MG In NS Inj 100 / 100 100 ML @ 200 mls/hr IV.SIG Q8H [facility] Rx#:[id number] Keppra Inj 500 MG In NS Inj 100 105 / 105 105 / 105 ML @ 420 mls/hr IV.SIG Q12H [facility] Rx#:[id number] Oral 1000 / 1000 442 / 442 Other: # Voids 8 2 Date of Last Bowel Movement 03/02/18 03/02/18 # Bowel Movements 1 - Constitutional no acute distress - Routine Respiratory Exam Present: CTA bilaterally - Routine Cardiovascular Exam Present: RRR - Routine Abdominal Exam Present: soft - Routine Extremities Exam Comments: right forearm swelling/ tenderness/ ROM and erythema has improved. Results - Labs CBC & Chem 7: 02/22/18 04:02 02/22/18 04:02 - Procedures lung biopsy. 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 continue Dexamethasone and Keppra- neurosurgery and oncology/ radiation oncology f/u as outpatient. no surgery per neurosurgery- cleared for discharge by oncology; f/u with oncology and radiation oncology as outpatient. -fall with rib fracture/ T3/ T4 fracture fall precautions- continue with pain control- conservative treatment per neurosurgery. -right tongue swelling- likely due to trauma- improving. might consider ENT evaluation as outpatient. -elevated BP; hypertension?- continue Procardia- continue to monitor and adjust the regimen as needed. increased the dose of Procardia to 60 mg po daily. -superficial phlebitis. cellulitis of the right forearm-improved- continue antibiotic. keep the right hand elevated- -DVT/GI prophylaxis with SCD's and PPI. Discharge Planning: dc to rehab today. see med list. f/u; pcp, oncology and radiation oncology. d/w the patient. E-Foars[facility] was reviewed.
--- NOTE | 2018-03-03 09:25 | P.DS ---
Date of admission: 02/18/18 14:41 Primary care physician: No Primary Care Physician Brief History from admission: 62-year-old male was brought to the ER by his friend for evaluation after a fall. patient is a poor historian and most of the information was obtained from ER record. Patient is not oriented to time or place, has incoherent speech, unable to give any valuable information about his condition. 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 Patient was able to walk with his friend to and from the car, his friend does not know his medical history. DS: Medications - Discharge Medications Prescriptions: cephalexin [Keflex] 500 mg PO QID 5 Days #40 cap dexamethasone [Decadron] 4 mg PO Q12H 14 Days #28 tab levetiracetam [Keppra] 500 mg PO Q12H 14 Days #56 tab oxycodone 5 mg PO Q6H PRN #10 tab PRN Reason: SEVERE PAIN 6-10 DS: Summary Hospital Course: patient was admitted with brain mass. he was found to have pulmonary nodule which was biopsied. he was found to have metastatic melanoma. he was evaluated by neurosurgery, oncology and radiation oncology. Not a candidate for surgery per neurosurgery. he will have a f/u with oncology and radiation oncology as outpatient. he will be discharged on Decadron ( will be tapered off by oncology as outpatient) along with Decadron. he was found to have T3/T4 fracture which was evaluated by neurosurgery with no indication for surgery.he had soft tissue swelling of the right tongue-likely related to trauma; this has improved; might consider ENT evaluation as outpatient.he had phlebitis/ cellulitis of the right forearm for which he will be discharged on oral antibiotic. - Time Spent with Patient Total time spent providing and/or coordinating discharge services: Less than 30 minutes - Quality: VTE Deep Vein Thrombosis/Pulmonary Embolism Present on Admission: No Exam Vital signs: Vital Signs 03/02/18 12:00 03/02/18 16:00 03/02/18 20:00 Temperature 98.4 F 97.8 F 97.9 F Pulse Rate 100 H 110 H 104 H Respiratory Rate 17 17 21 Blood Pressure 177/82 H 146/81 H 176/88 H Pulse Oximetry 97 97 99 03/03/18 00:00 03/03/18 04:00 03/03/18 05:07 Temperature 98.2 F 98.2 F 98.2 F Pulse Rate 87 97 H 97 H Respiratory Rate 19 21 20 Blood Pressure 146/82 H 137/63 145/91 H Pulse Oximetry 96 95 96 Intake & Output 03/02/18 03/03/18 03/03/18 18:59 06:59 18:59 Intake Total 1105 / 1105 647 / 647 Balance 1105 / 1105 647 / 647 Weight 80.7 kg Intake: IV 105 / 105 205 / 205 Ancef Inj 1,000 MG In NS Inj 100 / 100 100 ML @ 200 mls/hr IV.SIG Q8H [facility] Rx#:[id number] Keppra Inj 500 MG In NS Inj 100 105 / 105 105 / 105 ML @ 420 mls/hr IV.SIG Q12H [facility] Rx#:[id number] Oral 1000 / 1000 442 / 442 Other: # Voids 8 2 Date of Last Bowel Movement 03/02/18 03/02/18 # Bowel Movements 1 - Constitutional no acute distress - Routine Respiratory Exam Present: CTA bilaterally - Routine Cardiovascular Exam Present: RRR - Routine Abdominal Exam Present: soft - Routine Extremities Exam Comments: swelling/ erythema of the right forearm has improved. - Routine Neurological Exam Present: alert, oriented X3 Results Procedures completed during hospitalization: lung biopsy. - Impressions ITS Impressions Head MRI 02/18/18 00:00 CONCLUSION: 1. Single 2.6 cm enhancing mass lesion in the left posterior parietal lobe surrounded by prominent vasogenic edema characteristic for neoplastic disease. Could either be a primary brain tumor versus a metastatic deposit. 2. Bilateral chronic mastoiditis. Thoracic Spine CT 02/18/18 00:00 CONCLUSION: 1. Fractures along the superior endplate at T3 and T4 with slight extension into the posterior elements on the left at T3 and bilaterally at T4. No retropulsion of posterior fragments or canal stenosis. Abdomen MRI 02/19/18 00:00 CONCLUSION: 1. There are a few scattered benign-appearing hepatic cysts throughout the liver. Otherwise, the liver is unremarkable. 2. No evidence of gallstones or biliary tract obstruction. Chest X-Ray 02/23/18 00:00 CONCLUSION: No pneumothorax Lung Biopsy CT 02/23/18 00:00 CONCLUSION: Uncomplicated CT guided biopsy. Venous Doppler Study 03/01/18 00:00 CONCLUSION: 1. There is occlusive thrombus within the right cephalic vein in the proximal forearm. 2. The remaining veins of the right upper extremity are patent. Discharge Plan - Discharge Order Discharge Orders: Oncology Clear for Discharge (Routine); Ordered 03/01/18 Ordered By: Asia Merino - Physicians Team Primary Care Provider: Primary Care Dolores Fisher Attending Provider: Carmina Carmona Other Providers: Viet Hernandez MD ; Joseph Park MD ; [place] ; Parth Gomez MD ; Portillo Ching MD - Rxs /Orders / Referrals /Forms Prescriptions: New cephalexin [Keflex] 250 mg Capsule 500 mg PO QID 5 Days Qty: 40 RF: 0 dexamethasone [Decadron] 4 mg Tablet 4 mg PO Q12H 14 Days Qty: 28 RF: 0 levetiracetam [Keppra] 250 mg Tablet 500 mg PO Q12H 14 Days Qty: 56 RF: 0 nifedipine 60 mg Tablet Extended Release 24hr 60 mg PO DAILY RF: 0 oxycodone 5 mg Tablet 5 mg PO Q6H PRN (Reason: SEVERE PAIN 6-10) Qty: 10 RF: 0 Discontinued [id number] [Fioricet] 50-300-40 mg Capsule 2 cap PO Q4H PRN (Reason: Headache) hydroxychloroquine 200 mg Tablet 200 mg PO DAILY oxycodone-aspirin 4.8355-325 mg Tablet 1 tab PO Q4-6H PRN (Reason: Pain) Referrals: Primary Care Dolores Fisher [Primary Care Provider] - See Instructions
[2018-03-03 13:15] VITALS: BP 164/84; PULSE 80; RESP 18; TEMP 97.3; O2SAT 99
== END 2018-03-03 15:45 ==
LOC: NEDDLT 09:10 → N03 14:41 → N04 02-23 19:56
PROVIDERS: ADMIT Internal Medicine; ATTEND Internal Medicine